=== PATIENT | female | born 1955 | race Caucasian/White ===

== ENCOUNTER 2017-07-29 07:20 | Emergency (ER) | payer BC ==
[2017-07-29 07:38] VITALS: BP 126/79
--- NOTE | 2017-07-29 08:07 | UC ---
Minor Trauma HPI - HPI Summary HPI Summary: Thursday she fell in the bathroom when she was lightheaded due to dehydration from diarrhea. She is better now in terms of the diarrhea. She did not have much pain at the time but now has left shoulder pain, left rib pain. It hurts more to move arm and breath and cough. No hematuria, no vomiting. - History of Current Complaint Chief Complaint: UCUpperExtremity Stated Complaint: RIB PAIN DUE TO FALL,DIARRHEA Time Seen by Provider: 07/29/17 07:54 Hx Obtained From: Patient Onset/Duration: Gradual Onset, Lasting Days, Still Present Onset Of Pain: Post Accident Severity Initially: Mild Severity Currently: Severe Pain Intensity: 10 Mechanism Of Injury: Blunt Trauma, Direct Blow, Fall From A Standing Position Aggravating Factor(s): Deep Breaths, Movement Alleviating Factor(s): Nothing - Allergies/Home Medications Allergies/Adverse Reactions: Allergies Allergy/AdvReac Type Severity Reaction Status Date / Time No Known Allergies Allergy Verified 07/29/17 07:28 Home Medications: Home Medications Cholecalciferol (Vitamin D3) [Vitamin D3] 1,000 unit PO DAILY 07/29/17 [History Confirmed 07/29/17] Fexofenadine (NF) [Enedelia 180 (NF)] 180 mg PO DAILY 07/29/17 [History Confirmed 07/29/17] Hydroxychloroquine TAB* [Plaquenil TAB*] 400 mg PO DAILY 07/29/17 [History Confirmed 07/29/17] Levothyroxine TAB* [Synthroid TAB*] 88 mcg PO DAILY 07/29/17 [History Confirmed 07/29/17] Sertraline* [Zoloft*] 100 mg PO BEDTIME 07/29/17 [History Confirmed 07/29/17] PMH/Surg Hx/FS Hx/Imm Hx Previously Healthy: No - breast cancer. No lung disease. - Surgical History Surgical History: Yes Surgery Procedure, Year, and Place: lumpectomy. hysterectomy - Family History Known Family History: Positive: Other - no related rib - Social History Lives: With Family Alcohol Use: None Substance Use Type: None Smoking Status (MU): Never Smoked Tobacco Review of Systems Musculoskeletal: Arthralgia All Other Systems Reviewed And Are Negative: Yes Physical Exam Triage Information Reviewed: Yes Appearance: Well-Appearing, No Pain Distress - she appears comfortable until she takes deep breaths and then she has severe pain., Well-Nourished Vital Signs: Initial Vital Signs Temp 99 F 07/29/17 07:31 Pulse 83 07/29/17 07:31 Resp 20 07/29/17 07:31 BP 126/79 07/29/17 07:31 Pulse Ox 96 07/29/17 07:31 Vital Signs Reviewed: Yes Eyes: Positive: Conjunctiva Clear ENT: Positive: Normal ENT inspection Neck exam: Normal Neck: Positive: Supple, Nontender, No Lymphadenopathy Respiratory: Positive: Lungs clear, Normal breath sounds, No respiratory distress, No accessory muscle use. Negative: Respiratory distress, Decreased breath sounds, Accessory muscle use, Crackles, Rhonchi, Stridor, Wheezing Abdomen Description: Positive: Nontender, No Organomegaly, Soft. Negative: CVA Tenderness (R), CVA Tenderness (L), Distended, Guarding Musculoskeletal: Positive: Other: - No left shoulder pain or tenderness. Neurological: Positive: Alert, Muscle Tone Normal. Negative: Fatigued Psychological: Positive: Age Appropriate Behavior Skin: Negative: rashes - no obvious bruising or the involved sites. Minor Trauma Course/Dx - Course Course Of Treatment: No signs or symptoms of spleen or kidney laceration. She has no lung disease to make rib fracture more worrisome. No signs of shoulder/ clavile fracture. She agrees to seek PT and MRI if shoulder does not improve quickly. We have found 5 rib fractures and she and have been made aware that this places her at risk for pneumonia and further complications. They will keep up with pain control and f/u pcp often. If there are ever any worsening symptoms, they will go to ED immediately. They will also take care not to fall due to sedating properties of pain meds. Incentive spirometer described in detail. - Differential Dx/Diagnosis Provider Diagnoses: rib injury. shoulder injury Discharge - Discharge Plan Condition: Fair Disposition: HOME Prescriptions: HYDROcodone/ACETAMIN 5-325 MG* [[place] 5-325 TAB*] 2 tab PO Q4H PRN #40 tab MDD 6 PRN Reason: Pain Spirometers and Accessories [Mistassist] 1 each MC SEE INSTRUCTIONS #1 each Patient Education Materials: Rib Fracture (ED) Referrals: Tamara Abel MD [Primary Care Provider] - 1 Day Additional Instructions: Go to your pcp in 1-2 days. Go to ED immediately for any signs of pneumonia such as sob, cough, worsening pain.
--- NOTE | 2017-07-29 08:47 | RAD ---
INDICATION: Left lateral rib pain after a fall COMPARISON: None. TECHNIQUE: 4 views of the left ribs were obtained. FINDINGS: There are minimally displaced fractures in the left 6th-10th lateral ribs. Remaining visualized bones are intact. Incidentally noted is a mild degree of dextroconvex curvature of the lower thoracic spine. The lungs are grossly clear. There is no pneumothorax. IMPRESSION: Minimally displaced fractures involving the lateral left 6th-10th ribs.
== END 2017-07-29 09:15 | disposition home or self-care (01) ==
LOC: UCCORT 07:20
DX: S29.9XXA Unspecified injury of thorax, initial encounter (principal); S49.92XA Unspecified injury of left shoulder and upper arm, initial encounter; W19.XXXA Unspecified fall, initial encounter; Y93.9 Activity, unspecified; Y92.002 Bathroom of unspecified non-institutional (private) residence as the place of occurrence of the external cause
CPT/HCPCS: 99212; G0463

== ENCOUNTER 2018-06-24 07:21 | Emergency (ER) | payer BC ==
--- OUTSIDE RECORDS SUMMARY | 2018-06-24 07:30 | XMS REPORT | Continuity of Care Document ---
:1955 External Reference #:[id number] Author Name Tamara Abel MD Address [address] [place] [address] Care Team Providers Name Role Phone Tamara Abel MD Primary Care Physician Unavailable Payers Type Date Identification Numbers Payment Provider Subscriber Policy Number: [id number] [facility] Ppo Edie Silva Group Number: [id number] [address] [id number] PayID: [id number] [place] [address] Advance Directives Description No Information Available Problems Date Description Provider Status Onset: 02/01/2013 Vitamin D deficiency Tamara Abel MD Active Onset: 09/27/2009 Sjogren's syndrome Tamara Abel MD Active Onset: 10/21/2007 Carcinoma in situ of breast Tamara Abel MD Active Onset: 10/19/2007 Polyclonal hypergammaglobulinemia Tamara Abel MD Active Onset: 07/20/2007 Mixed hyperlipidemia Tamara Abel MD Active Onset: 04/16/2007 Moderate recurrent major depression Tamara Abel MD Active Onset: 04/16/2007 Hypothyroidism Tamara Abel MD Active Onset: 12/16/2016 Microscopic colitis Tamara Abel MD Active Onset: 12/21/2017 Cobalamin deficiency Tamara Abel MD Active Onset: 03/23/2018 Alopecia areata Tamara Abel MD Active Onset: 04/16/2007 Allergy Tamara Abel MD Inactive Inactive: 07/06/2014 Onset: 10/19/2007 Ulcerative colitis Tamara Abel MD Inactive Inactive: 12/16/2016 Onset: 04/16/2007 Headache Tamara Abel MD Resolved Resolved: 07/06/2014 Onset: 04/16/2007 Carpal tunnel syndrome Tamara Abel MD Resolved Resolved: 07/06/2014 Onset: 04/16/2007 Female climacteric state Tamara Abel MD Resolved Resolved: 07/06/2014 Family History Date Family Member(s) Problem(s) Comments Father [place] : (age 75 Years) Father due to [place] Mother Cancer, Breast : (age 81 Years) Mother due to Alzheimer's Disease Social History Type Date Description Comments Sex Unknown Marital Status Lives With Spouse 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 Tobacco Use Start: Unknown Never Smoked Cigarettes Smoking Status Reviewed: 03/23/18 Never Smoked Cigarettes ETOH Use Rarely consumes alcohol Tobacco Use Start: Unknown Patient has never smoked Allergies, Adverse Reactions, Alerts Date Description Reaction Status Severity Comments 06/02/2018 NKDA Active 07/16/2016 Latex Active Medications Medication Date Status Form Strength Qnty SIG Indications Ordering Provider Mastectomy Bra 11/17 Active This is C50.919 medically MD Tamara necessary LEFT Breast 11/17 Active This is C50.919 Colten medically MD Tamara necessary Levothyroxine 02/11 Active Tablets 88mcg 90tab 1 by mouth E03.9 Colten s every day MD Tamara Fexofenadine HCL Active Tablets 180mg 30tab 1 PO qd s MD Tamara Hydroxychloroquine Active Tablets 200mg 2 po daily M35.00 Endo, Sulfate 0000 Abiodun [facility] D3 Active Capsules 1000Unit Once Daily Unknown Escitalopram 04/13 Hx Tablets 20mg 30tab 1 by mouth F33.1 Ruth Abel s every day MD Tamara - 05/11 Escitalopram 03/23 Hx Tablets 10mg 30tab 1 by mouth F33.1 Ruth Abel s every day MD Tamara - 04/13 Sertraline HCL 09/17 Hx Tablets 50mg 270ta 3 by mouth F33.1 Colten bs every day MD Tamara - 03/23 Colestipol HCL 09/16 Hx Tablets 1gm 120ta 1 by mouth K51.90 bs twice a day MD Tamara - - increase 09/17 dose by pill daily until diarrhea has resolved with mdd of 4 pills Nitrofurantoin 07/16 Hx Capsules 100mg 10cap 2 Times A Unknown Monohyd s Day - 09/16 Meloxicam 06/05 Hx Tablets 15mg 30tab 1 tab by [id number] Colten s mouth daily MD Tamara - for pain 09/17 for 1- weeks, then daily as needed for pain Baclofen 06/05 Hx Tablets 10mg 30tab 1 by mouth M54.5 Colten s every at MD Tamara - bedtime for 09/17 1-2 then as needed for muscle spasm Clonidine HCL 02/11 Hx Tablets 0.1mg 30tab 1 po daily N95.1 Colten s MD Tamara - 04/01 Levothyroxine 05/29 Hx Tablets 75mcg 90tab 1 by mouth E03.9 Chilo Abel s every day MD Tamara - 02/11 Levothyroxine 02/01 Hx Tablets 88mcg 90tab 1 by mouth E03.9 Chilo Abel s every day MD Tamara - 05/29 Zostavax 08/24 Hx Solution [id number]/ 1unit 0.65 Rec 0.65ML s milliliters MD Tamara - sc x 1 04/01 Sertraline HCL 01/08 Hx Tablets 100mg 90tab take 1 F33.1 Colten s tablet by MD Tamara - mouth every Restasis Hx Emulsion 0.05% 1 gtt ou Unknown /0000 bid - 09/21 Pantoprazole Hx Tablets 40mg 1 by mouth Fabiano Fragoso Sodium /0000 DR every other arup - day 06/05 Methocarbamol Hx Tablets 500mg take One Surya, /0000 tablet(s) Mayra VILLARREAL - every 8 09/16 hours needed for muscle pain. Pantoprazole 0000 Hx Tablets 40mg 1 by mouth Unknown Sodium /0000 DR every day - 09/17 Famotidine Hx Tablets 20mg one by Unknown /0000 mouth bid - 03/22 Immunizations CPT Code Status Date Vaccine Reaction Lot # [id number] Given 02/22/2018 Afluria Imunization Q2039 Given 03/28/2017 Flu Vaccine NOS Q2037 Given 03/15/2016 Fluvirin Immunization [facility] 09290 Given 03/15/2016 Zoster (Zostavax) [facility] Q2039 Given 04/20/2015 Flu Vaccine NOS 87924 Given 03/08/2014 Afluria Or Fluvirin Flu Vac Intramuscular 50285 Given 02/27/2013 Afluria Or Fluvirin Flu Vac Intramuscular 20526 Given 03/16/2012 Afluria Or Fluvirin Flu Vac VIS DATE 12/08/11 Intramuscular 99545 Given 03/25/2011 Tdap (Adacel) Ages 7 And Above VIS DATE 04/25/08 Only 05242 Given 03/25/2011 Afluria Or Fluvirin Flu Vac VIS DATE 12/31/10 Intramuscular Vital Signs Date Vital Result Comment 06/02/2018 10:49am Weight 251.00 lb Heart Rate 99 /min BP Systolic 128 mmHg BP Diastolic 78 mmHg Respiratory Rate 18 /min Height 68 inches 5'8" O2 % BldC Oximetry 98 % Ra BMI (Body Mass Index) 38.2 kg/m2 05/11/2018 2:45pm Weight 252.00 lb Heart Rate 83 /min BP Systolic 124 mmHg BP Diastolic 78 mmHg Respiratory Rate 18 /min Height 68 inches 5'8" O2 % BldC Oximetry 98 % Ra BMI (Body Mass Index) 38.3 kg/m2 04/13/2018 1:13pm Weight 253.00 lb Heart Rate 92 /min BP Systolic 128 mmHg BP Diastolic 70 mmHg Respiratory Rate 18 /min Height 68 inches 5'8" O2 % BldC Oximetry 98 % Ra BMI (Body Mass Index) 38.5 kg/m2 03/23/2018 1:11pm Weight 250.00 lb Heart Rate 75 /min BP Systolic 116 mmHg BP Diastolic 76 mmHg Respiratory Rate 18 /min Height 68 inches 5'8" BMI (Body Mass Index) 38.0 kg/m2 12/21/2017 10:57am Weight 244.00 lb Heart Rate 88 /min BP Systolic 120 mmHg BP Diastolic 80 mmHg Respiratory Rate 18 /min Height 68 inches 5'8" 09/17/17 BMI (Body Mass Index) 37.1 kg/m2 09/17/2017 11:07am Weight 243.00 lb Heart Rate 76 /min BP Systolic 98 mmHg BP Diastolic 60 mmHg Respiratory Rate 18 /min Height 68 inches 5'8" 09/17/17 BMI (Body Mass Index) 36.9 kg/m2 07/31/2017 3:07pm Weight 245.00 lb Heart Rate 84 /min BP Systolic 110 mmHg BP Diastolic 70 mmHg Respiratory Rate 18 /min Height 68 inches 5'8" 07/22/16 O2 % BldC Oximetry 96 % BMI (Body Mass Index) 37.2 kg/m2 03/19/2017 11:08am Weight 245.00 lb Heart Rate 68 /min BP Systolic 100 mmHg BP Diastolic 58 mmHg Respiratory Rate 18 /min Height 68 inches 5'8" 07/22/16 BMI (Body Mass Index) 37.2 kg/m2 12/16/2016 9:52am Weight 245.00 lb Heart Rate 76 /min BP Systolic 122 mmHg BP Diastolic 80 mmHg Respiratory Rate 18 /min Height 68 inches 5'8" 07/22/16 BMI (Body Mass Index) 37.2 kg/m2 09/16/2016 11:24am Weight 246.00 lb Heart Rate 76 /min BP Systolic 112 mmHg BP Diastolic 70 mmHg Respiratory Rate 18 /min Height 68 inches 5'8" 07/22/16 BMI (Body Mass Index) 37.4 kg/m2 07/22/2016 3:40pm Weight 246.00 lb Heart Rate 76 /min BP Systolic 102 mmHg BP Diastolic 50 mmHg Respiratory Rate 18 /min Height 68 inches 5'8" 07/22/16 BMI (Body Mass Index) 37.4 kg/m2 06/05/2016 10:15am Weight 254.00 lb Heart Rate 68 /min BP Systolic 112 mmHg BP Diastolic 70 mmHg Respiratory Rate 18 /min Height 68 inches 5'8" 08/28/15 BMI (Body Mass Index) 38.6 kg/m2 04/01/2016 2:43pm Weight 254.00 lb Heart Rate 80 /min BP Systolic 130 mmHg BP Diastolic 70 mmHg Respiratory Rate 18 /min Height 68 inches 5'8" 08/28/15 BMI (Body Mass Index) 38.6 kg/m2 02/12/2016 10:04am Weight 250.00 lb Heart Rate 76 /min BP Systolic 140 mmHg BP Diastolic 70 mmHg Respiratory Rate 18 /min Height 68 inches 5'8" 08/28/15 BMI (Body Mass Index) 38.0 kg/m2 02/05/2016 11:16am Body Temperature 98.2 F Weight 250.00 lb Heart Rate 72 /min BP Systolic 128 mmHg BP Diastolic 74 mmHg Respiratory Rate 17 /min Height 68 inches 5'8" 08/28/15 O2 % BldC Oximetry 9495 % Ra BMI (Body Mass Index) 38.0 kg/m2 08/28/2015 11:06am Weight 245.00 lb Heart Rate 76 /min BP Systolic 122 mmHg BP Diastolic 70 mmHg Respiratory Rate 18 /min Height 68 inches 5'8" 08/28/15 BMI (Body Mass Index) 37.2 kg/m2 05/29/2015 10:38am Weight 245.00 lb Heart Rate 76 /min BP Systolic 102 mmHg BP Diastolic 70 mmHg Respiratory Rate 18 /min Height 68 inches 5'8" 12/12/14 BMI (Body Mass Index) 37.2 kg/m2 12/12/2014 3:26pm Weight 243.00 lb Heart Rate 76 /min BP Systolic 112 mmHg BP Diastolic 80 mmHg Respiratory Rate 18 /min Height 68 inches 12/12/14 BMI (Body Mass Index) 36.9 kg/m2 10/17/2014 11:06am Weight 245.00 lb Heart Rate 68 /min BP Systolic 112 mmHg BP Diastolic 70 mmHg Respiratory Rate 18 /min Height 68 inches 5'8" (Done On 08/04/13) BMI (Body Mass Index) 37.2 kg/m2 09/21/2014 1:04pm Weight 243.00 lb Heart Rate 84 /min BP Systolic 102 mmHg BP Diastolic 58 mmHg Respiratory Rate 18 /min Height 68 inches 5'8" (Done On 08/04/13) BMI (Body Mass Index) 36.9 kg/m2 07/06/2014 1:08pm Weight 243.00 lb Heart Rate 80 /min BP Systolic Lying Down 112 mmHg BP Diastolic Lying Down 70 mmHg Respiratory Rate 18 /min Height 68 inches 5'8" (Done On 08/04/13) BMI (Body Mass Index) 36.9 kg/m2 01/19/2014 1:05pm Weight 246.00 lb Heart Rate 68 /min BP Systolic 110 mmHg BP Diastolic 70 mmHg Respiratory Rate 18 /min Height 68 inches 5'8" (Done On 08/04/13) 08/25/2013 4:03pm Weight 252.00 lb Heart Rate 88 /min BP Systolic 140 mmHg BP Diastolic 82 mmHg Respiratory Rate 20 /min Height 68 inches 5'8" (Done On 08/04/13) 08/04/2013 1:11pm Weight 250.00 lb Heart Rate 96 /min BP Systolic 128 mmHg BP Diastolic 80 mmHg Respiratory Rate 20 /min Height 68 inches 5'8" 02/01/2013 1:02pm Weight 262.00 lb Heart Rate 80 /min BP Systolic 134 mmHg BP Diastolic 70 mmHg Respiratory Rate 20 /min Height 68 inches 5'8" (Done On 08/24/12) 08/24/2012 1:00pm Weight 259.00 lb Heart Rate 102 /min BP Systolic 110 mmHg BP Diastolic 80 mmHg Respiratory Rate 18 /min Height 68 inches 5'8" 06/16/2012 1:02pm Weight 266.00 lb Up 7# Heart Rate 84 /min BP Systolic 114 mmHg R/LG BP Diastolic 82 mmHg R/LG Respiratory Rate 18 /min Height 68.5 inches 5'8.50" (Done On 09/25/11) 03/16/2012 1:03pm Weight 259.00 lb Heart Rate 100 /min BP Systolic 124 mmHg BP Diastolic 80 mmHg Respiratory Rate 20 /min Height 68.5 inches 5'8.50" (Done On 09/25/11) 10/02/2011 1:06pm Weight 260.00 lb Heart Rate 100 /min BP Systolic 130 mmHg BP Diastolic 80 mmHg Respiratory Rate 20 /min Height 68.5 inches 5'8.50" (Done On 09/25/11) 09/25/2011 10:55am Weight 260.00 lb Heart Rate 88 /min BP Systolic 126 mmHg BP Diastolic 76 mmHg Respiratory Rate 20 /min Height 68.5 inches 5'8.50" 03/25/2011 10:06am Weight 258.00 lb Heart Rate 68 /min BP Systolic 110 mmHg BP Diastolic 72 mmHg Respiratory Rate 18 /min Height 68.25 inches 5'8.25" (Done On 07/16/10) 10/15/2010 10:55am Weight 252.00 lb Heart Rate 68 /min BP Systolic 112 mmHg BP Diastolic 76 mmHg Respiratory Rate 18 /min Height 68.25 inches 5'8.25" (Done On 07/16/10) 07/16/2010 11:29am Weight 248.00 lb Heart Rate 88 /min BP Systolic 110 mmHg BP Diastolic 76 mmHg Respiratory Rate 18 /min Height 68.25 inches 5'8.25" 03/28/2010 11:05am Weight 251.00 lb Heart Rate 70 /min BP Systolic 124 mmHg BP Diastolic 70 mmHg 01/08/2010 11:01am Weight 248.00 lb Heart Rate 80 /min BP Systolic 110 mmHg BP Diastolic 62 mmHg Respiratory Rate 18 /min 11/09/2009 9:12am Weight 251.00 lb Heart Rate 84 /min BP Systolic 110 mmHg BP Diastolic 70 mmHg Respiratory Rate 18 /min 09/27/2009 9:29am Weight 246.00 lb Heart Rate 88 /min BP Systolic 106 mmHg BP Diastolic 70 mmHg Respiratory Rate 18 /min 07/03/2009 9:51am Weight 245.00 lb Heart Rate 80 /min BP Systolic 116 mmHg BP Diastolic 76 mmHg Respiratory Rate 18 /min Height 68.5 inches 5'8.50" 04/02/2009 10:06am Weight 236.00 lb Heart Rate 96 /min BP Systolic 112 mmHg BP Diastolic 76 mmHg Respiratory Rate 18 /min 12/29/2008 9:24am Weight 237.00 lb Heart Rate 92 /min BP Systolic 120 mmHg BP Diastolic 66 mmHg Respiratory Rate 18 /min 12/11/2008 11:06am Weight 237.00 lb Heart Rate 96 /min BP Systolic 128 mmHg BP Diastolic 72 mmHg Respiratory Rate 20 /min 11/09/2008 10:05am Weight 236.00 lb Heart Rate 84 /min BP Systolic 108 mmHg BP Diastolic 64 mmHg Respiratory Rate 18 /min 10/24/2008 9:12am Weight 234.00 lb Heart Rate 104 /min BP Systolic 112 mmHg BP Diastolic 78 mmHg Respiratory Rate 20 /min Height 68.5 inches 5'8.50" 07/24/2008 10:13am Weight 240.00 lb Heart Rate 88 /min BP Systolic 120 mmHg BP Diastolic 80 mmHg Respiratory Rate 18 /min Height 68.5 inches 5'8.50" 01/21/2008 8:53am Weight 246.00 lb Heart Rate 80 /min BP Systolic 110 mmHg BP Diastolic 70 mmHg Height 68.5 inches 5'8.50" 10/19/2007 11:16am Weight 238.00 lb Heart Rate 104 /min BP Systolic 112 mmHg BP Diastolic 70 mmHg Respiratory Rate 20 /min Height 68.5 inches 5'8.50" 07/20/2007 11:17am Weight 240.00 lb Heart Rate 70 /min BP Systolic 122 mmHg BP Diastolic 84 mmHg Respiratory Rate 22 /min Height 68.5 inches 5'8.50" 04/16/2007 10:40am Weight 242.00 lb Heart Rate 76 /min BP Systolic 120 mmHg BP Diastolic 84 mmHg Respiratory Rate 16 /min Height 68.5 inches 5'8.50" Results Test Date Facility Test Result H/L Range Note Laboratory test finding 03/12/2018 [facility] TSH 3.48 uIU/mL 0.35-4.94 1 Vitamin B12 1252 pg/mL High 180-914 Vitamin D 25 Hydroxy 22 ng/mL Low 30-100 2 CBC with Auto Diff-fcmg 03/12/2018 [facility] WBC 3.8 K/uL Low 4.1-11.0 RBC 5.01 M/uL 4.00-5.40 Hemoglobin 15.1 gm/dL 12.0-16.0 Hematocrit 45.0 % 36.0-47.0 MCV 89.8 fL 80.0-97.0 MCH 30.2 pg 27.0-32.0 MCHC 33.6 g/dL 32.0-36.0 RDW 13.2 % 11.5-14.5 PLT Count 265 K/ul 140-400 MPV 8.2 FL 7.1-10.7 Neutrophil 55.4 % 35.0-75.0 Lymphocyte 28.4 % 16.0-52.0 Monocyte 11.3 % High 2.0-10.0 Eosinophil 3.8 % 0.0-5.0 Basophil 1.1 % 0.0-4.0 Abs Neutrophils 2.1 K/uL 2.1-8.0 Abs Lymphocytes 1.1 K/uL 0.8-5.5 Abs Monocytes 0.4 K/uL 0.1-1.0 Abs Eosinophils 0.1 K/uL 0.0-0.5 Abs Basophils 0.0 K/uL 0.0-0.3 Comprehensive Met Panel-FCMG 03/12/2018 [facility] Sodium 140 mmol/L 135- 146 3 Potassium 3.8 mmol/L 3.5-5.2 Chloride# 102 mmol/L 97-110 4 Carbon Dioxide 31 mmol/L 24-34 Glucose 86 mg/dL 70-105 BUN 13 mg/dL 6-26 Creatinine 0.8 mg/dL 0.5-1.4 Calcium 9.1 mg/dL 8.5-10.2 Total Protein 7.8 g/dL 6.0-8.0 Albumin 4.3 g/dL 3.6-4.9 Globulin 3.5 g/dL 2.0-3.5 A/G Ratio 1.2 Ratio 1.0-2.2 Total Bilirubin 0.6 mg/dL 0.1-1.3 Alkaline Phosphatase 58 U/L 24-140 Alt 11 U/L 3-42 Ast 17 U/L 8-42 Shanel Egfr >60 >60 5 Non Shanel Egfr >60 >60 6 Anion Gap 7 mmol/L 5-15 7 Laboratory test 09/09/2017 [facility] Vitamin D 25 19 ng/mL Low 30-100 8, 9 finding Hydroxy TSH 2.25 uIU/mL 0.35-4.94 Vitamin B12 283 pg/mL 180-914 Immunofix 09/09/2017 [facility] Serum NO MONOCLONAL AL 10 Serum-RL @ <SEE NOTE> Laboratory test 09/09/2017 [facility] Vitamin B12 344 pg/mL (193-9 11 finding 86) Angela Urine Random 09/09/2017 [facility] Protein,Urine <6 mg/dL 12 [phone] Immunofix Urine @ NOT APPLICABLE Laboratory test finding 03/12/2017 [facility] Vit D25oh 28 ng/mL Low 31-100 13 Lipid Treatment 03/12/2017 [facility] Cholesterol 184 mg/dL 50-199 Triglycerides 98 mg/dL 30-200 HDL 43 mg/dL 35-85 14 Chol/ HDL Ratio 4.3 ratio 3.7-5.6 VLDL 20 mg/dL 2-29 LDL (Calc) 122 mg/dL High 20-99 15 Alt 8 U/L 3-42 Ast 15 U/L 8-42 Laboratory test finding 03/12/2017 [facility] TSH 0.92 uIU/mL 0.35-4.94 CBC With Auto Diff 03/12/2017 [facility] WBC 4.1 K/uL 4.1-11.0 RBC 4.86 M/uL 4.00-5.40 Hemoglobin 14.8 gm/dL 12.0-16.0 Hematocrit 43.6 % 36.0-47.0 MCV 89.8 fL 80.0-97.0 MCH 30.4 pg 27.0-32.0 MCHC 33.8 g/dL 32.0-36.0 RDW 13.9 % 11.5-14.5 PLT Count 276 K/ul 140-400 MPV 8.5 FL 7.1-10.7 Neutrophil 60.4 % 35.0-75.0 Lymphocyte 25.9 % 16.0-52.0 Monocyte 9.5 % 2.0-10.0 Eosinophil 3.0 % 0.0-5.0 Basophil 1.2 % 0.0-4.0 Abs Neutrophils 2.5 K/uL 2.1-8.0 Abs Lymphocytes 1.0 K/uL 0.8-5.5 Abs Monocytes 0.4 K/uL 0.1-1.0 Abs Eosinophils 0.1 K/uL 0.0-0.5 Abs Basophils 0.0 K/uL 0.0-0.3 Laboratory test 12/10/2016 [facility] Hepatitis C NONREACTIVE Nonreactive 16 finding Virus Antibody Laboratory test 09/08/2016 [facility] TSH 3.10 uIU/mL 0.35-4.94 17 finding Urine Culture 07/16/2016 [facility] Urine Culture URETHRAL WENDY 18 (315)- - Quantity 10,000 - 50,000 <SEE NOTE> N 19 pH Ur Strip.auto 07/16/2016 N2N/CCD Import pH Ur Strip.auto 5.5 Low 6.5- 7.5 Urobilinogen Ur 07/16/2016 N2N/CCD Import Urobilinogen Ur 0.2 0.2-1.0 Strip-aCnc Strip-aCnc Urine hemoglobin 07/16/2016 N2N/CCD Import Urine hemoglobin Negative Negative detection by detection by automated test automated test strip strip Urinalysis With 07/16/2016 [facility] Urine Color YELLOW Yellow Microscopic (315)- - Urine Clarity CLEAR Clear Urine Glucose - Dipstick NEGATIVE mg/dL Negative Urine Bilirubin - Dipstick NEGATIVE Negative Urine Ketone NEGATIVE mg/dL Negative Urine Specific [place] 1.015 N 1.010-1.030 Urine Blood NEGATIVE Negative Urine PH 5.5 Low 6.5-7.5 Urine Protein - Dipstick NEGATIVE mg/dL Negative Urine Urobilinogen - Dipstick 0.2 E.U./dL N 0.2-1.0 Urine Nitrite - Dipstick NEGATIVE Negative Urine Leuk Esterase MODERATE Abnormal Negative Urine RBC NONE SEEN rbc/hpf 0-2 Urine WBC 5-10 wbc/hpf 0-7 Urine Epithelial Cells FEW /lpf None Seen Urine Bacteria FEW None Seen Source: URINE, CLEAN CAT <SEE NOTE> 20 Bacteria 07/16/2016 N2N/CCD Import Bacteria Few None Seen [presence] in [presence] in urine sediment by urine sediment by light maria dolores light microscopy Bilirub Ur Ql 07/16/2016 N2N/CCD Import Bilirub Ur Ql Negative Negative Strip.auto Strip.auto Color Ur 07/16/2016 N2N/CCD Import Color Ur Yellow Yellow Epithelial cells 07/16/2016 N2N/CCD Import Epithelial cells Few None Seen [presence] in [presence] in urine sediment by urine sediment by l light microscopy Erythrocytes 07/16/2016 N2N/CCD Import Erythrocytes None Seen 0-2 [#/area] in urine [#/area] in urine sediment by sediment by microsc microscopy high power field Ketones Ur 07/16/2016 N2N/CCD Import Ketones Ur Negative Negative Strip.auto-mCnc Strip.auto-mCnc Leukocyte 07/16/2016 N2N/CCD Import Leukocyte Moderate High Negative esterase Ur Ql esterase Ur Ql Strip.auto Strip.auto Urine glucose 07/16/2016 N2N/CCD Import Urine glucose Negative Negative measurement by measurement by automated test automated test strip strip (mass/volume) Urine appearance 07/16/2016 N2N/CCD Import Urine appearance Clear Clear determination determination Specific gravity 07/16/2016 N2N/CCD Import Specific gravity 1.015 1.010- 1.030 of urine by of urine by automated test automated test strip strip Prot Ur 07/16/2016 N2N/CCD Import Prot Ur Negative Negative Strip.auto-mCnc Strip.auto-mCnc Nitrite Ur Ql 07/16/2016 N2N/CCD Import Nitrite Ur Ql Negative Negative Strip.auto Strip.auto CBC With Auto 06/05/2016 [facility] WBC 4.4 K/uL 4.1-11.0 Diff RBC 5.06 M/uL 4.00-5.40 Hemoglobin 14.8 gm/dL 12.0-16.0 Hematocrit 45.4 % 36.0-47.0 MCV 89.7 fL 80.0-97.0 MCH 29.3 pg 27.0-32.0 MCHC 32.7 g/dL 32.0-36.0 RDW 12.8 % 11.5-14.5 PLT Count 301 K/ul 140-400 Neutrophil 57.1 % 35.0-75.0 Lymphocyte 31.9 % 16.0-52.0 Monocyte 10.1 % High 2.0-10.0 Eosinophil 0.3 % 0.0-5.0 Basophil 0.6 % 0.0-4.0 Abs Neutrophils 2.5 K/uL 2.1-8.0 Abs Lymphocytes 1.4 K/uL 0.8-5.5 Abs Monocytes 0.4 K/uL 0.1-1.0 Abs Eosinophils 0.0 K/uL 0.0-0.5 Abs Basophils 0.0 K/uL 0.0-0.3 Comprehensive Metabolic (CMP) 06/05/2016 [facility] Sodium 137 mmol/L 134- 142 Potassium 4.4 mmol/L 3.5-5.2 Chloride 103 mmol/L 97-109 Carbon Dioxide 30 mmol/L 24-34 Glucose 85 mg/dL 70-105 BUN 12 mg/dL 6-26 Creatinine 0.8 mg/dL 0.5-1.4 Calcium 9.3 mg/dL 8.5-10.2 Total Protein 7.7 g/dL 6.0-8.0 Albumin 4.4 g/dL 3.6-4.9 Globulin 3.3 g/dL 2.0-3.5 A/G Ratio 1.3 Ratio 1.0-2.2 Total Bilirubin 0.6 mg/dL 0.1-1.3 Alkaline Phosphatase 68 U/L 24-140 Alt 8 U/L 3-42 Ast 14 U/L 8-42 Anion Gap 8 mmol/L 6-14 Shanel Egfr >60 >60 21 Non Shanel Egfr >60 >60 22 Laboratory test finding 06/05/2016 [facility] Esr 5 mm/hr 0-20 CRP (C-Reactive) 0.19 mg/dL 0.00-0.75 Unloinc 04/04/2016 N2N/CCD Import Unloinc 83 Low 93-98 Unloinc 21 21-100 Unloinc 424 [facility]inc 7.9 Heart rate by 04/04/2016 N2N/CCD Import Heart rate by 69 oximetry oximetry Continuous Oximetry 04/04/2016 [facility] Low Oximetry 83 % Low 93-98 23 (315)- - Fio2 21 N 21-100 Heart Rate 69 BPM N Duration Of Study 424 MINUTES N Total Time Below 88% 7.9 MINUTES N Unloinc 04/03/2016 N2N/CCD Import Unloinc Resting Oxygen saturation 04/03/2016 N2N/CCD Import Oxygen saturation 93 93-98 in arterial blood in arterial blood by pulse oxime by pulse oximetry Continuous Oximetry 04/03/2016 [facility] Oximetry 93 % N 93-98 (315)- - Fio2 21 N 21-100 Heart Rate 99 BPM N Patient Status RESTING N Laboratory test finding 03/25/2016 [facility] TSH 2.49 uIU/mL 0.35-4.94 24 Laboratory test finding 02/05/2016 [facility] TSH 5.54 uIU/mL High 0.35- 4.94 25 Comprehensive Metabolic (CMP) 02/05/2016 [facility] Sodium 138 mmol/L 134- 142 Potassium 3.8 mmol/L 3.5-5.2 Chloride 101 mmol/L 97-109 Carbon Dioxide 30 mmol/L 24-34 Glucose 92 mg/dL 70-105 BUN 10 mg/dL 6-26 Creatinine 0.8 mg/dL 0.5-1.4 Calcium 9.6 mg/dL 8.5-10.2 Total Protein 7.9 g/dL 6.0-8.0 Albumin 4.4 g/dL 3.6-4.9 Globulin 3.5 g/dL 2.0-3.5 A/G Ratio 1.3 Ratio 1.0-2.2 Total Bilirubin 0.5 mg/dL 0.1-1.3 Alkaline Phosphatase 46 U/L 24-140 Alt 9 U/L 3-42 Ast 15 U/L 8-42 Anion Gap 11 mmol/L 6-14 Shanel Egfr >60 >60 26 Non Shanel Egfr >60 >60 27 CBC With Auto Diff 02/05/2016 [facility] WBC 5.3 K/uL 4.1-11.0 RBC 4.90 M/uL 4.00-5.40 Hemoglobin 14.8 gm/dL 12.0-16.0 Hematocrit 44.3 % 36.0-47.0 MCV 90.3 fL 80.0-97.0 MCH 30.2 pg 27.0-32.0 MCHC 33.4 g/dL 32.0-36.0 RDW 13.1 % 11.5-14.5 PLT Count 303 K/ul 140-400 Neutrophil 60.9 % 35.0-75.0 Lymphocyte 27.7 % 16.0-52.0 Monocyte 9.6 % 2.0-10.0 Eosinophil 1.1 % 0.0-5.0 Basophil 0.7 % 0.0-4.0 Abs Neutrophils 3.2 K/uL 2.1-8.0 Abs Lymphocytes 1.5 K/uL 0.8-5.5 Abs Monocytes 0.5 K/uL 0.1-1.0 Abs Eosinophils 0.1 K/uL 0.0-0.5 Abs Basophils 0.0 K/uL 0.0-0.3 Urine Timed Stevie 08/23/2015 [facility] Hours Of Collection 24 h [phone] Urine Volume 2050 mL High (800-1800) Urine Immunofixation 08/23/2015 [facility] Urine NOT APPLICABLE [phone] @ Protein,Urine <6 mg/dL 28 Protein/24HR <123 mg/(24.h) (0-150) Urine TP (24 HR) <6 mg/(24.h) Albumin Urine NOT APPLICABLE % Alph1 1 Urine NOT APPLICABLE % Alpha 2 Urine NOT APPLICABLE % Beta Urine NOT APPLICABLE % Gamma Urine NOT APPLICABLE % Interpretation: NOT APPLICABLE Immun[facility] Serum 08/21/2015 [facility] NO MONOCLONAL 29 [phone] Serum @ AL <SEE NOTE> Laboratory test 08/21/2015 [facility] Vit D,25 31 ng/mL 31-10 30 finding Hydroxy 0 TSH 3.71 uIU/mL 0.35-4.94 Laboratory test 07/10/2015 [facility] TSH 2.02 uIU/mL 0.35-4.94 31 finding Laboratory test 05/22/2015 [facility] Thyroid Stim 0.32 uIU/mL Low 0.36-3.74 32 finding (315)- - Hormone BMP (Basic) 05/22/2015 [facility] Glucose 84 mg/dL 74- 106 (315)- - BUN 10 mg/dL 7-18 Creatinine 0.8 mg/dL 0.6-1.3 Glom Filtration Rate, Estimate >60 mL/min >60 If >60 mL/min >60 33 BUN/Creat 12.5 ratio Sodium 141 mmol/L 136-145 Potassium 3.9 mmol/L 3.5-5.1 Chloride 106 mmol/L 98-107 Carbon Dioxide 27 mmol/L 21-32 Anion Gap 8 mEq/L 8-16 Calcium 8.6 mg/dL 8.5-10.1 CBC With Auto 05/22/2015 [facility] White Blood 3.8 K/uL 3.1-10.7 Diff (315)- - Count Red Blood Count 4.97 M/uL 3.90-5.40 Hemoglobin 14.8 gm/dL 11.6-15.8 Hematocrit 44.1 % 36.0-46.1 Mean Cell Volume 88.7 fl 80.9-99.0 Mean Corpuscular HGB 29.8 pg 25.9-32.7 Mean Corpuscular HGB Conc 33.6 g/dL 30.8-34.3 Platelet Count 286 K/uL 155-360 Red Cell Distri Width SD 41.5 fl 3-47 Red Cell Distri Width %CV 13.2 % 11.7-14.4 Mean Platelet Volume 9.7 fL 8.9-12.4 Neut% 59.2 % 40.4-72.8 Lymph % 30.1 % 17.0-46.1 [place] % 10.4 % 4.3-13.2 Eo% 0.0 % 0.0-6.6 Bas% 0.3 % 0.0-1.1 Neut# 2.22 K/uL 1.0-7.0 Lymph # 1.13 K/uL Low 1.8-7.0 [place] # 0.39 K/uL 0.3-0.9 Eos # 0.00 K/uL 0.0-0.5 Baso # 0.01 K/uL 0.0-0.1 Laboratory test 05/22/2015 [facility] Vitamin 23.5 Low 30.0-100.0 34 finding (315)- - D,25-Hydroxy ng/mL Liver Function 05/22/2015 [facility] Total Protein 8.5 g/ dL High 6.4-8.2 Tests (315)- - Albumin 3.9 g/dL 3.4-5.0 Globulin 4.6 g/dL High 1.9-4.3 Alb/Glob 0.8 ratio Bilirubin,Total 0.5 mg/dL 0.2-1.0 Bilirubin,Direct 0.1 mg/dL 0.0-0.2 Bilirubin,Indirect 0.4 mg/dL 0.0-0.9 Sgot/Ast 15 U/L 15-37 SGPT/Alt 16 U/L 12-78 Alkaline Phosphatase 63 U/L 45-117 LDL Cholesterol 05/22/2015 [facility] Cholesterol 189 mg/ dL <200 35 Profile (315)- - Triglycerides 149 mg/dL <150 36 HDL Cholesterol 39 mg/dL Low >40 37 LDL-Cholesterol 120 mg/dL < 100 38 Laboratory test finding 12/07/2014 [facility] TSH 0.56 uIU/mL 0.35-4.94 39 Serum Prot Elect -RL 12/07/2014 [facility] Total Protein 8.1 g/dL (6.4-8.2 ) Total Protein Epp 8.1 g/dL (6.4-8.2) Albumin Calc 4.6 g/dL (3.9-5.1) Alpha 1 Calc 0.2 g/dL (0.1-0.3) Alpha 2 Calc 0.6 g/dL (0.4-1.0) Beta Calc 0.9 g/dL (0.5-1.1) Gamma Calc 1.8 g/dL High (0.4-1.2) Monoclonal Calc NO MONOCLONAL ID <SEE NOTE> g/dL ([place]) 40 Albumin Percent 56.9 % Low (58.8-69.6) Alpha 1 Percent 2.2 % (1.6-3.0) Alpha 2 Percent 7.9 % (7.2-13.2) Beta Percent 10.8 % (8.0-14.7) Gamma Percent 22.2 % High (7.3-16.4) Interpretation: SEE NOTE: 41 Basic (BMP) 09/14/2014 [facility] Sodium 139 mmol/L 134-142 42 Potassium 4.0 mmol/L 3.5-5.2 Chloride 105 mmol/L 97-109 Carbon Dioxide 25 mmol/L 24-34 Glucose 87 mg/dL 70-105 BUN 12 mg/dL 6-26 Creatinine 0.8 mg/dL 0.5-1.4 Calcium 9.2 mg/dL 8.5-10.2 Anion Gap 13 mmol/L 6-14 Non Shanel Egfr >60 >60 43 Shanel Egfr >60 >60 44 CBC With Auto Diff 09/14/2014 [facility] WBC 4.4 K/uL 4.1-11.0 RBC 5.08 M/uL 4.00-5.40 Hemoglobin 15.5 gm/dL 12.0-16.0 Hematocrit 45.6 % 36.0-47.0 MCV 89.7 fL 80.0-97.0 MCH 30.4 pg 27.0-32.0 MCHC 33.9 g/dL 32.0-36.0 RDW 13.0 % 11.5-14.5 PLT Count 285 K/ul 140-400 Neutrophil 56.6 % 35.0-75.0 Lymphocyte 32.3 % 16.0-52.0 Monocyte 8.2 % 2.0-10.0 Eosinophil 1.9 % 0.0-5.0 Basophil 1.0 % 0.0-4.0 Abs Neutrophils 2.5 K/uL 2.1-8.0 Abs Lymphocytes 1.4 K/uL 0.8-5.5 Abmon 0.4 K/uL 0.1-1.0 Abs Eosinophils 0.1 K/uL 0.0-0.5 Abs Basophils 0.0 K/uL 0.0-0.3 Laboratory test finding 09/14/2014 [facility] TSH 1.52 uIU/mL 0.34-5.60 Vit D,25 Hydroxy 52 ng/mL 31-100 Laboratory test 06/29/2014 [facility] Thyroid Stim 1.79 uIU/mL 0.36-3.74 finding (315)- - Hormone Laboratory test 01/12/2014 N2N/CCD Import % Baso. 0.9 % 0.0-2.0 finding % Eos. 1.2 % 0.0-4.0 % Lymph 35 % 20-44 % [place] 9.8 % 2.0-10.0 % José 54 % 50-70 A/G Ratio 1.3 ratio Low 1.6-2.2 Absolute Baso. 0.0 K/ul 0.0-0.3 Absolute Eos. 0.1 K/ul 0.0-0.5 Absolute Lymph. 1.7 K/ul 0.8-4.8 Absolute [place]. 0.5 K/ul 0.1-1.0 Absolute José. 2.59 K/ul 2.05-7.63 Albumin 4.5 g/dL 3.5-5.0 Alk. Phos. 56.0 U/L 30.0-126.0 Alt 12.0 U/L 9.0-52.0 Anion Gap 9.0 mmol/L Low 10.0-20.0 Ast 19.0 U/L 14.0-36.0 BUN 12.0 mg/dL 7.0-18.0 BUN/Creat Ratio 15.0 ratio 12.0-20.0 Calcium 9.3 mg/dL 8.7-10.5 Chloride 107.0 mmol/L 98.0-107.0 Co2 24.0 mmol/L 22.0-30.0 Creatinine-Serum 0.8 mg/dL 0.7-1.2 Globulin 3.4 g/dL 2.7-4.3 Glucose 92.0 mg/dL 75.0-110.0 HCT 45.5 % 37.0-51.0 HGB 15.4 Gm/dl 12.0-16.0 MCH 30.0 pg 26.0-32.0 MCHC 33.9 g/dL 31.0-36.0 MCV 88.5 Fl 80.0-97.0 MPV 6.3 fL 6.0-10.0 PLT 298 K/ul 140-440 Potasium 4.1 mmol/L 3.6-5.0 RBC 5.1 M/ul 4.2-6.3 RDW 11.8 % 11.5-14.5 Sodium 140.0 mmil/L 137.0-145.0 TSH 1.01 uIU/ml 0.50-6.00 Total Bilirubin 0.4 mg/dL 0.2-1.3 Total Protein 7.9 g/dL 6.3-8.2 WBC 4.8 K/ul 4.1-10.9 eGFR 83.8 mi/minper1.73 45 Lipid Panel 01/12/2014 N2N/CCD Import Chol/HDL Ratio 5.8 ratio Cholesterol 216.0 mg/dL High 50.0-199.0 HDL 37.0 mg/dL 29.0-86.0 LDL, Calculated 135.0 mg/dL High 20.0-129.0 Triglycerides 220.0 mg/dL 30.0-249.0 vLDL 44.0 ng/dL Protein Electro.,S 01/12/2014 N2N/CCD Import A/G Ratio 1.2 0.7-2.0 Albumin 4.2 g/dL 3.2-5.6 Tdgwo-3-Klnyqwls 0.2 g/dL 0.1-0.4 Qentm-5-Aqzwvcsu 0.5 g/dL 0.4-1.2 Beta Globulin 1.0 g/dL 0.6-1.3 Gamma Globulin 1.8 g/dL High 0.5-1.6 Globulin, Total 3.5 g/dL 2.0-4.5 M-Arsh Not Observed Not Observed g/ P E Interpretation, Serum See Note 46 Please Note: See Note 47 Protein,Total,Serum 7.7 g/dL 6.0-8.5 Protein Electrophoresis,[place]-U 01/12/2014 N2N/CCD Import Albumin,U 44.2 % . Liskv-7-Kxvmapzl 2.7 % . Uqvcf-7-Cvcbyrdq 14.3 % . Beta Globulin,U 29.5 % . Gamma Globulin,U 9.2 % . M-Arhs,% Not Observed Not Observed % Please Note: See Note 48 Protein,Total,Urine 16.1 mg/dL High 0.0-15.0 Laboratory test 12/06/2013 N2N/CCD Import Polyp Colon See Note 49 finding And/Or Rectum Laboratory test 07/28/2013 N2N/CCD Import % Baso. 1.1 % 0.0-2.0 finding % Eos. 0.7 % 0.0-4.0 % Lymph 30 % 20-44 % [place] 10.5 % High 2.0-10.0 % José 58 % 50-70 A/G Ratio 1.2 ratio Low 1.6-2.2 Absolute Baso. 0.0 K/ul 0.0-0.3 Absolute Eos. 0.0 K/ul 0.0-0.5 Absolute Lymph. 1.3 K/ul 0.8-4.8 Absolute [place]. 0.5 K/ul 0.1-1.0 Absolute José. 2.57 K/ul 2.05-7.63 Albumin 4.2 g/dL 3.5-5.0 Alk. Phos. 55.0 U/L 30.0-126.0 Alt 12.0 U/L 9.0-52.0 Anion Gap 9.0 mmol/L Low 10.0-20.0 Ast 19.0 U/L 14.0-36.0 BUN 13.0 mg/dL 7.0-18.0 BUN/Creat Ratio 13.0 ratio 12.0-20.0 Calcium 9.5 mg/dL 8.7-10.5 Chloride 104.0 mmol/L 98.0-107.0 Co2 26.0 mmol/L 22.0-30.0 Creatinine-Serum 1.0 mg/dL 0.7-1.2 Globulin 3.6 g/dL 2.7-4.3 Glucose 92.0 mg/dL 75.0-110.0 HCT 45.3 % 37.0-51.0 HGB 15.2 Gm/dl 12.0-16.0 MCH 30.6 pg 26.0-32.0 MCHC 33.6 g/dL 31.0-36.0 MCV 91.0 Fl 80.0-97.0 MPV 7.0 fL 6.0-10.0 PLT 281 K/ul 140-440 Potasium 3.7 mmol/L 3.6-5.0 RBC 5.0 M/ul 4.2-6.3 RDW 12.0 % 11.5-14.5 Sodium 139.0 mmil/L 137.0-145.0 TSH 2.43 uIU/ml 0.50-6.00 Total Bilirubin 0.3 mg/dL 0.2-1.3 Total Protein 7.8 g/dL 6.3-8.2 Vitamin D 38.9 ng/mL 30.0-100.0 WBC 4.4 K/ul 4.1-10.9 eGFR 64.9 mi/minper1.73 50 Lipid Panel 07/28/2013 [facility] Import Chol/HDL Ratio 4.5 ratio Cholesterol 191.0 mg/dL 50.0-199.0 HDL 42.0 mg/dL 29.0-86.0 LDL, Calculated 121.2 mg/dL 20.0-129.0 Triglycerides 139.0 mg/dL 30.0-249.0 vLDL 27.8 ng/dL Laboratory test 03/22/2013 [facility] Import TSH 2.22 uIU/ml 0.50-6.00 finding Laboratory test 01/25/2013 [facility] Import Thyroid Stim 4.91 uIU/mL High 0.49-4.67 finding Hormone Vitamin D,25-Hydroxy 25.9 ng/mL Low 30.0-100.0 51 Laboratory test finding 08/17/2012 N2N/CCD Import Alb/Glob 1.0 ratio Albumin 4.2 g/dL 3.5-5.0 Alkaline Phosphatase 62 U/L 50-136 Anion Gap 9 mEq/L 8-16 BUN 10 mg/dL 5-23 BUN/Creat 11.1 ratio Bas% 0.4 % 0.0-1.1 Baso # 0.02 K/uL 0.0-0.1 Bilirubin,Total 0.5 mg/dL 0.2-1.2 Calcium 9.0 mg/dL 8.5-10.1 Carbon Dioxide 28 mEq/L 18-29 Chloride 107 mmol/L 98-107 Creatinine 0.9 mg/dL 0.5-1.4 Eo% 0.8 % 0.0-6.6 Eos # 0.04 K/uL 0.0-0.5 Globulin 4.4 g/dL High 1.9-4.3 Glom Filtration Rate, Estimate >60 mL/min >60 Glucose 97 mg/dL 76-115 Hematocrit 44.1 % 36.0-46.1 Hemoglobin 15.2 gm/dL 11.6-15.8 If >60 mL/min >60 52 Lymph # 1.34 K/uL 0.8-3.4 Lymph % 27.1 % 17.0-46.1 Mean Cell Volume 86.8 fl 80.9-99.0 Mean Corpuscular HGB 29.9 pg 25.9-32.7 Mean Corpuscular HGB Conc 34.5 g/dL High 30.8-34.3 Mean Platelet Volume 9.6 fL 8.9-12.4 [place] # 0.56 K/uL 0.3-0.9 [place] % 11.3 % 4.3-13.2 Neut# 2.98 K/uL 1.0-7.0 Neut% 60.4 % 40.4-72.8 Platelet Count 333 K/uL 155-360 Potassium 3.9 mmol/L 3.5-5.1 Red Blood Count 5.08 M/uL 3.90-5.40 Red Cell Distri Width %CV 13.3 % 11.7-14.4 Red Cell Distri Width SD 41.3 fl 3-47 SGPT/Alt 16 U/L Low 30-65 Sgot/Ast 14 U/L Low 16-40 Sodium 140 mmol/L 136-145 Thyroid Stim Hormone 3.88 uIU/mL 0.49-4.67 Total Protein 8.6 g/dL High 6.3-8.0 53 Vitamin D,25-Hydroxy 26.7 ng/mL Low 30.0-100.0 54 White Blood Count 4.9 K/uL 3.1-10.7 LDL Cholesterol Profile 08/17/2012 N2N/CCD Import Cholesterol 200 mg/dL 120-200 HDL Cholesterol 42 mg/dL 29-83 LDL-Cholesterol 131 mg/dL 62-185 Triglycerides 137 mg/dL 16-231 Laboratory test finding 03/09/2012 N2N/CCD Import Alb/Glob 0.9 ratio Albumin 3.9 g/dL 3.5-5.0 Alkaline Phosphatase 50 U/L 50-136 Anion Gap 11 mEq/L 8-16 BUN 10 mg/dL 5-23 BUN/Creat 11.1 ratio Bas% 0.6 % 0.0-1.1 Baso # 0.03 K/uL 0.0-0.1 Bilirubin,Total 0.6 mg/dL 0.2-1.2 C-Reactive Protein,Quant 5.4 mg/L High 0.0-4.9 Calcium 8.9 mg/dL 8.5-10.1 Carbon Dioxide 27 mEq/L 18-29 Chloride 105 mmol/L 98-107 Creatinine 0.9 mg/dL 0.5-1.4 Eo% 0.6 % 0.0-6.6 Eos # 0.03 K/uL 0.0-0.5 Globulin 4.4 g/dL High 1.9-4.3 Glom Filtration Rate, Estimate >60 mL/min >60 Glucose 93 mg/dL 76-115 Hematocrit 43.6 % 36.0-46.1 Hemoglobin 14.7 gm/dL 11.6-15.8 If >60 mL/min >60 55 Lymph # 1.16 K/uL 0.8-3.4 Lymph % 24.7 % 17.0-46.1 Mean Cell Volume 88.8 fl 80.9-99.0 Mean Corpuscular HGB 29.9 pg 25.9-32.7 Mean Corpuscular HGB Conc 33.7 g/dL 30.8-34.3 Mean Platelet Volume 9.6 fL 8.9-12.4 [place] # 0.46 K/uL 0.3-0.9 [place] % 9.8 % 4.3-13.2 Neut# 3.01 K/uL 1.0-7.0 Neut% 64.3 % 40.4-72.8 Platelet Count 307 K/uL 155-360 Potassium 4.0 mmol/L 3.5-5.1 Red Blood Count 4.91 M/uL 3.90-5.40 Red Cell Distri Width %CV 13.5 % 11.7-14.4 Red Cell Distri Width SD 42.9 fl 3-47 SGPT/Alt 18 U/L Low 30-65 Sedimentation Rate 11 mm/hr 0-30 Sgot/Ast 14 U/L Low 16-40 Sodium 139 mmol/L 136-145 Thyroid Stim Hormone 2.22 uIU/mL 0.49-4.67 Total Protein 8.3 g/dL High 6.3-8.0 Vitamin D,25-Hydroxy 21.2 ng/mL Low 30.0-100.0 56 White Blood Count 4.7 K/uL 3.1-10.7 CBC/Manual 03/09/2012 N2N/[employer] Import CBC/Manual See Note 57 Differential Differential Hematocrit 43.6 % 36.0-46.1 Hemoglobin 14.7 gm/dL 11.6-15.8 Mean Cell Volume 88.8 fl 80.9-99.0 Mean Corpuscular HGB 29.9 pg 25.9-32.7 Mean Corpuscular HGB Conc 33.7 g/dL 30.8-34.3 Mean Platelet Volume 9.6 fL 8.9-12.4 Platelet Count 307 K/uL 155-360 Red Blood Count 4.91 M/uL 3.90-5.40 Red Cell Distri Width %CV 13.5 % 11.7-14.4 White Blood Count 4.7 K/uL 3.1-10.7 LDL Cholesterol Profile 03/09/2012 N2N/[employer] Import Cholesterol 194 mg/dL 120-200 HDL Cholesterol 36 mg/dL 29-83 LDL-Cholesterol 127 mg/dL 62-185 Triglycerides 153 mg/dL 16-231 Sjogren's 03/09/2012 N2N/CCD Import Sjogrens >8.0 High 0.0-0.9 58 Antibodies Antibodies (SSB) Sjogrens Antibodies (Ssa) >8.0 High 0.0-0.9 Laboratory test finding 09/18/2011 N2N/CCD Import Alb/Glob 0.9 ratio Albumin 4.1 g/dL 3.5-5.0 Alkaline Phosphatase 50 U/L 50-136 Anion Gap 13 mEq/L 8-16 BUN 11 mg/dL 5-23 BUN/Creat 11.0 ratio Bas% 0.4 % 0.0-1.1 Baso # 0.02 K/uL 0.0-0.1 Bilirubin,Total 0.5 mg/dL 0.2-1.2 Calcium 9.2 mg/dL 8.5-10.1 Carbon Dioxide 24 mEq/L 18-29 Chloride 107 mmol/L 98-107 Creatinine 1.0 mg/dL 0.5-1.4 Eo% 0.4 % 0.0-6.6 Eos # 0.02 K/uL 0.0-0.5 Globulin 4.6 g/dL High 1.9-4.3 Glom Filtration Rate, Estimate >60 mL/min >60 Glucose 104 mg/dL 76-115 Hematocrit 42.4 % 36.0-46.1 Hemoglobin 14.6 gm/dL 11.6-15.8 If >60 mL/min >60 59 Lymph # 0.98 K/uL 0.8-3.4 Lymph % 20.2 % 17.0-46.1 Mean Cell Volume 87.2 fl 80.9-99.0 Mean Corpuscular HGB 30.0 pg 25.9-32.7 Mean Corpuscular HGB Conc 34.4 g/dL High 30.8-34.3 Mean Platelet Volume 10.0 fL 8.9-12.4 [place] # 0.45 K/uL 0.3-0.9 [place] % 9.3 % 4.3-13.2 Neut# 3.39 K/uL 1.0-7.0 Neut% 69.7 % 40.4-72.8 Platelet Count 314 K/uL 155-360 Potassium 3.9 mmol/L 3.5-5.1 Red Blood Count 4.86 M/uL 3.90-5.40 Red Cell Distri Width %CV 13.4 % 11.7-14.4 Red Cell Distri Width SD 41.9 fl 3-47 SGPT/Alt 19 U/L Low 30-65 Sgot/Ast 18 U/L 16-40 Sodium 140 mmol/L 136-145 Thyroid Stim Hormone 3.47 uIU/mL 0.49-4.67 Total Protein 8.7 g/dL High 6.3-8.0 Vitamin D,25-Hydroxy 18.6 ng/mL Low 30.0-100.0 60 White Blood Count 4.9 K/uL 3.1-10.7 Laboratory test 05/05/2011 N2N/CCD Import Thyroid Stim 2.86 uIU/mL 0.49- 4.67 finding Hormone Vitamin D,25-Hydroxy 14.4 ng/mL Low 30.0-100.0 61 Laboratory test finding 03/18/2011 N2N/CCD Import Alb/Glob 0.9 ratio Albumin 3.9 g/dL 3.5-5.0 Alkaline Phosphatase 45 U/L Low 50-136 Anion Gap 14 mEq/L 8-16 BUN 13 mg/dL 5-23 BUN/Creat 13.0 ratio Bas% 0.4 % 0.0-1.1 Baso # 0.02 K/uL 0.0-0.1 Bilirubin,Total 0.5 mg/dL 0.2-1.2 Calcium 9.3 mg/dL 8.5-10.1 Carbon Dioxide 25 mEq/L 18-29 Chloride 105 mmol/L 98-107 Creatinine 1.0 mg/dL 0.5-1.4 Eo% 0.4 % 0.0-6.6 Eos # 0.02 K/uL 0.0-0.5 Globulin 4.2 g/dL 1.9-4.3 Glom Filtration Rate, Estimate >60 mL/min >60 Glucose 85 mg/dL 76-115 Hematocrit 42.6 % 36.0-46.1 Hemoglobin 14.3 gm/dL 11.6-15.8 If >60 mL/min >60 62 Lymph # 1.27 K/uL 0.8-3.4 Lymph % 27.1 % 17.0-46.1 Mean Cell Volume 90.1 fl 80.9-99.0 Mean Corpuscular HGB 30.2 pg 25.9-32.7 Mean Corpuscular HGB Conc 33.6 g/dL 30.8-34.3 Mean Platelet Volume 9.7 fL 8.9-12.4 [place] # 0.53 K/uL 0.3-0.9 [place] % 11.3 % 4.3-13.2 Neut# 2.85 K/uL 1.0-7.0 Neut% 60.8 % 40.4-72.8 Platelet Count 298 K/uL 155-360 Potassium 3.8 mmol/L 3.5-5.1 Red Blood Count 4.73 M/uL 3.90-5.40 Red Cell Distri Width %CV 13.4 % 11.7-14.4 Red Cell Distri Width SD 42.8 fl 3-47 SGPT/Alt 16 U/L Low 30-65 Sgot/Ast 15 U/L Low 16-40 Sodium 140 mmol/L 136-145 Thyroid Stim Hormone 5.83 uIU/mL High 0.49-4.67 Total Protein 8.1 g/dL High 6.3-8.0 Vitamin D,25-Hydroxy 9.1 ng/mL Low 32.0-100.0 63 White Blood Count 4.7 K/uL 3.1-10.7 LDL Cholesterol Profile 03/18/2011 N2N/CCD Import Cholesterol 190 mg/dL 120-200 HDL Cholesterol 40 mg/dL 29-83 LDL-Cholesterol 120 mg/dL 62-185 Triglycerides 152 mg/dL 16-231 Laboratory test 10/08/2010 N2N/CCD Import Thyroid Stim 3.46 uIU/mL 0.49- 4.67 64 finding Hormone Laboratory test 03/07/2010 N2N/CCD Import Alb/Glob 0.9 finding Albumin 3.9 g/dL 3.5-5.0 Alkaline Phosphatase 64 U/L 50-136 Anion Gap 10 mEq/L 8-16 BUN 12 mg/dL 5-23 BUN/Creat 13.3 Bas% 0.2 % 0.0-1.1 Baso # 0.0 K/uL 0.0-0.1 Bilirubin,Total 0.5 mg/dL 0.2-1.2 C-Reactive Protein,Quant 3.2 mg/L 0.0-4.9 65 Calcium 8.6 mg/dL 8.5-10.1 Carbon Dioxide 27 mEq/L 21-32 Chloride 107 mEq/L 98-107 Creatinine 0.9 mg/dL 0.5-1.4 Eo% 0.2 % 0.0-6.6 Eos # 0.0 K/uL 0.0-0.5 Globulin 4.4 gm/dL High 1.9-4.3 Glom Filtration Rate, Estimate >60 mL/min >60 Glucose 100 mg/dL 76-115 Hematocrit 41.9 % 36.0-46.1 Hemoglobin 14.0 gm/dL 11.6-15.8 If >60 mL/min >60 66 Lymph # 1.3 K/uL 0.8-3.4 Lymph % 28.5 % 17.0-46.1 Mean Cell Volume 88.6 fl 80.9-99.0 Mean Corpuscular HGB 29.6 pg 25.9-32.7 Mean Corpuscular HGB Conc 33.4 g/dL 30.8-34.3 Mean Platelet Volume 9.5 fL 8.9-12.4 [place] # 0.4 K/uL 0.3-0.9 [place] % 9.3 % 4.3-13.2 Neut# 2.7 K/uL 1.0-7.0 Neut% 61.8 % 40.4-72.8 Platelet Count 284 K/uL 155-360 Potassium 3.5 mEq/L 3.5-5.1 Red Blood Count 4.73 M/uL 3.90-5.40 Red Cell Distri Width %CV 13.5 % 11.7-14.4 Red Cell Distri Width SD 43 fl 3-47 SGPT/Alt 27 U/L Low 30-65 Sedimentation Rate 9 mm/hr 0-30 67 Sgot/Ast 19 U/L 16-40 Sodium 140 mEq/L 136-145 Thyroid Stim Hormone 4.42 uIU/mL 0.49-4.67 68 Total Protein 8.3 g/dL High 6.3-8.0 White Blood Count 4.4 K/uL 3.1-10.7 LDL Cholesterol 03/07/2010 N2N/CCD Import Cholesterol 206 mg/dL High 120- 200 Profile HDL Cholesterol 42 mg/dL 32-96 LDL-Cholesterol 137 mg/dL 62-185 Triglycerides 137 mg/dL 0-210 Sjogren's 03/07/2010 N2N/CCD Import Sjogrens >8.0 High 0.0-0.9 Antibodies Antibodies (SSB) Sjogrens Antibodies (Ssa) >8.0 High 0.0-0.9 Laboratory test finding 06/26/2009 N2N/CCD Import Alb/Glob 0.8 Albumin 3.9 g/dL 3.5-5.0 Alkaline Phosphatase 67 U/L 50-136 Anion Gap 11 mEq/L 8-16 BUN 12 mg/dL 5-23 BUN/Creat 13.3 Bas% 0.2 % 0.0-1.1 Baso # 0.0 K/uL 0.0-0.1 Bilirubin,Total 0.4 mg/dL 0.2-1.2 Calcium 8.9 mg/dL 8.5-10.1 Carbon Dioxide 28 mEq/L 21-32 Chloride 103 mEq/L 98-107 Creatinine 0.9 mg/dL 0.5-1.4 Eo% 0.2 % 0.0-6.6 Eos # 0.0 K/uL 0.0-0.5 Estimated GFR Panel Globulin 4.8 gm/dL High 1.9-4.3 Glom Filtration Rate, Estimate >60 mL/min >60 Glucose 94 mg/dL 76-115 Hematocrit 42.4 % 36.0-46.1 Hemoglobin 14.3 gm/dL 11.6-15.8 If >60 mL/min >60 69 Lymph # 1.2 K/uL 0.8-3.4 Lymph % 29.5 % 17.0-46.1 Mean Cell Volume 89.5 fl 80.9-99.0 Mean Corpuscular HGB 30.2 pg 25.9-32.7 Mean Corpuscular HGB Conc 33.7 g/dL 30.8-34.3 Mean Platelet Volume 9.0 fL 8.9-12.4 [place] # 0.4 K/uL 0.3-0.9 [place] % 8.4 % 4.3-13.2 Neut# 2.6 K/uL 1.0-7.0 Neut% 61.7 % 40.4-72.8 Platelet Count 286 K/uL 155-360 Potassium 3.7 mEq/L 3.5-5.1 Red Blood Count 4.74 M/uL 3.90-5.40 Red Cell Distri Width %CV 13.0 % 11.7-14.4 Red Cell Distri Width SD 42 fl 3-47 SGPT/Alt 29 U/L Low 30-65 Sgot/Ast 23 U/L 16-40 Sodium 138 mEq/L 136-145 Thyroid Stim Hormone 4.30 uIU/mL 0.49-4.67 Total Protein 8.7 g/dL High 6.3-8.0 White Blood Count 4.2 K/uL 3.1-10.7 LDL Cholesterol Profile 06/26/2009 N2N/CCD Import Cholesterol 169 mg/dL 120-200 HDL Cholesterol 40 mg/dL 32-96 LDL-Cholesterol 100 mg/dL 62-185 Triglycerides 147 mg/dL 0-210 Laboratory test finding 10/09/2008 N2N/CCD Import Alb/Glob 0.8 Albumin 4.0 g/dL 3.5-5.0 Alkaline Phosphatase 74 U/L 50-136 Anion Gap 10 mEq/L 8-16 BUN 9 mg/dL 5-23 BUN/Creat 11.2 Bas% 0.0 % 0.0-1.1 Baso # 0.0 K/uL 0.0-0.1 Bilirubin,Total 0.6 mg/dL 0.2-1.2 Calcium 9.2 mg/dL 8.5-10.1 Carbon Dioxide 30 mEq/L 21-32 Chloride 102 mEq/L 98-107 Creatinine 0.8 mg/dL 0.5-1.4 Eo% 0.0 % 0.0-6.6 Eos # 0.0 K/uL 0.0-0.5 Globulin 5.2 gm/dL High 1.9-4.3 Glom Filtration Rate, Estimate >60 mL/min >60 Glucose 87 mg/dL 76-115 Hematocrit 44.1 % 36.0-46.1 Hemoglobin 15.0 gm/dL 11.6-15.8 If >60 mL/min >60 70 Lymph # 1.2 K/uL 0.8-3.4 Lymph % 35.5 % 17.0-46.1 Mean Cell Volume 86.6 fl 80.9-99.0 Mean Corpuscular HGB 29.5 pg 25.9-32.7 Mean Corpuscular HGB Conc 34.0 g/dL 30.8-34.3 Mean Platelet Volume 10.0 fL 8.9-12.4 [place] # 0.3 K/uL 0.3-0.9 [place] % 8.4 % 4.3-13.2 Neut# 1.9 K/uL 1.0-7.0 Neut% 56.1 % 40.4-72.8 Platelet Count 269 K/uL 155-360 Potassium 3.8 mEq/L 3.5-5.1 Red Blood Count 5.09 M/uL 3.90-5.40 Red Cell Distri Width %CV 13.4 % 11.7-14.4 Red Cell Distri Width SD 42 fl 3-47 SGPT/Alt 35 U/L 30-65 Sgot/Ast 22 U/L 16-40 Sodium 138 mEq/L 136-145 Thyroid Stim Hormone 2.44 uIU/mL 0.49-4.67 Total Protein 9.2 g/dL High 6.3-8.0 White Blood Count 3.4 K/uL 3.1-10.7 LDL Cholesterol Profile 10/09/2008 N2N/CCD Import Cholesterol 194 mg/dL 120-200 HDL Cholesterol 38 mg/dL 32-96 LDL-Cholesterol 136 mg/dL 62-185 Triglycerides 100 mg/dL 0-210 Protein Electro.,S 10/09/2008 N2N/CCD Import A/G Ratio 0.9 0.7-2.0 Albumin 4.0 g/dL 3.2-5.6 Lneie-0-Rwvdyeih 0.2 g/dL 0.1-0.4 Qneny-4-Atvyyuum 0.6 g/dL 0.4-1.2 Beta Globulin 1.1 g/dL 0.6-1.3 Gamma Globulin 2.7 g/dL High 0.5-1.6 Globulin, Total 4.6 g/dL High 2.0-4.5 M-Arsh Not Observed Not Observed g Note: (See Note) 71 Protein,Total,Serum 8.6 g/dL High 6.0-8.5 Protein Electrophoresis,[place]-U 10/09/2008 N2N/CCD Import Albumin,U 37.0 % . Bqbjk-4-Fyyixgvo 3.8 % . Oaewm-1-Lrhslghi 21.5 % . Beta Globulin,U 23.1 % . Gamma Globulin,U 14.5 % . M-Arsh,% Not Observed Not Observed % Note: (See Note) 72 Protein,Total,Urine 10.6 mg/dL 0.0-15.0 Laboratory test finding 07/17/2008 N2N/CCD Import Alb/Glob 0.8 Albumin 3.9 g/dL 3.5-5.0 Alkaline Phosphatase 68 U/L 50-136 Anion Gap 9 mEq/L 8-16 BUN 11 mg/dL 5-23 BUN/Creat 13.7 Bas% 0.0 % 0.0-1.1 Baso # 0.0 K/uL 0.0-0.1 Bilirubin,Total 0.5 mg/dL 0.2-1.2 Calcium 8.9 mg/dL 8.5-10.1 Carbon Dioxide 27 mEq/L 21-32 Chloride 104 mEq/L 98-107 Creatinine 0.8 mg/dL 0.5-1.4 Eo% 0.0 % 0.0-6.6 Eos # 0.0 K/uL 0.0-0.5 Globulin 4.9 gm/dL High 1.9-4.3 Glom Filtration Rate, Estimate >60 mL/min >60 Glucose 85 mg/dL 76-115 Hematocrit 41.8 % 36.0-46.1 Hemoglobin 14.4 gm/dL 11.6-15.8 If >60 mL/min >60 73 Lymph # 1.5 K/uL 0.8-3.4 Lymph % 38.0 % 17.0-46.1 Mean Cell Volume 85.8 fl 80.9-99.0 Mean Corpuscular HGB 29.6 pg 25.9-32.7 Mean Corpuscular HGB Conc 34.4 g/dL High 30.8-34.3 Mean Platelet Volume 9.6 fL 8.9-12.4 [place] # 0.4 K/uL 0.3-0.9 [place] % 11.0 % 4.3-13.2 Neut# 2.0 K/uL 1.0-7.0 Neut% 51.0 % 40.4-72.8 Platelet Count 279 K/uL 155-360 Potassium 3.6 mEq/L 3.5-5.1 Red Blood Count 4.87 M/uL 3.90-5.40 Red Cell Distri Width %CV 14.1 % 11.7-14.4 Red Cell Distri Width SD 43 fl 3-47 SGPT/Alt 32 U/L 30-65 Sgot/Ast 20 U/L 16-40 Sodium 136 mEq/L 136-145 Thyroid Stim Hormone 4.47 uIU/mL 0.49-4.67 Total Protein 8.8 g/dL High 6.3-8.0 White Blood Count 3.8 K/uL 3.1-10.7 LDL Cholesterol Profile 07/17/2008 N2N/[employer] Import Cholesterol 180 mg/dL 120-200 HDL Cholesterol 35 mg/dL 32-96 LDL-Cholesterol 127 mg/dL 62-185 Triglycerides 90 mg/dL 0-210 Laboratory test finding 03/31/2008 N2N/CCD Import Pathology Exam (See Note ) 74 Laboratory test finding 01/11/2008 N2N/CCD Import Alb/Glob 0.8 Albumin 4.1 g/dL 3.5-5.0 Alkaline Phosphatase 62 U/L 50-136 Anion Gap 12 mEq/L 8-16 BUN 11 mg/dL 5-23 BUN/Creat 12.2 Bas% 0.2 % 0.0-1.1 Baso # 0.0 K/uL 0.0-0.1 Bilirubin,Total 0.4 mg/dL 0.2-1.2 Calcium 9.1 mg/dL 8.5-10.1 Carbon Dioxide 27 mEq/L 21-32 Chloride 102 mEq/L 98-107 Creatinine 0.9 mg/dL 0.5-1.4 Eo% 0.2 % 0.0-6.6 Eos # 0.0 K/uL 0.0-0.5 Globulin 5.1 gm/dL High 1.9-4.3 Glucose 88 mg/dL 76-115 Hematocrit 43.8 % 36.0-46.1 Hemoglobin 14.6 gm/dL 11.6-15.8 Lymph # 1.4 K/uL 0.8-3.4 Lymph % 34.4 % 17.0-46.1 Mean Cell Volume 86.9 fl 80.9-99.0 Mean Corpuscular HGB 29.0 pg 25.9-32.7 Mean Corpuscular HGB Conc 33.3 g/dL 30.8-34.3 Mean Platelet Volume 9.4 fL 8.9-12.4 [place] # 0.5 K/uL 0.3-0.9 [place] % 12.3 % 4.3-13.2 Neut# 2.2 K/uL 1.0-7.0 Neut% 52.9 % 40.4-72.8 Platelet Count 314 K/uL 155-360 Potassium 4.0 mEq/L 3.5-5.1 Red Blood Count 5.04 M/uL 3.90-5.40 Red Cell Distri Width %CV 13.6 % 11.7-14.4 Red Cell Distri Width SD 42 fl 3-47 SGPT/Alt 38 U/L 30-65 Sgot/Ast 26 U/L 16-40 Sodium 137 mEq/L 136-145 Thyroid Stim Hormone 1.18 uIU/mL 0.49-4.67 Total Protein 9.2 g/dL High 6.3-8.0 White Blood Count 4.2 K/uL 3.1-10.7 Protein Electrophoresis,[place]-U 01/11/2008 N2N/[employer] Import Albumin,U 100.0 % . Nitkd-3-Idedhfea 0.0 % . Dvagp-0-Fpsersrp 0.0 % . Beta Globulin,U 0.0 % . Gamma Globulin,U 0.0 % . M-Arsh,% Not Observed Not Observed % Note: (See Note) 75 Protein,Total,Urine 18.1 mg/dL High 0.0-15.0 Protein Electro.,S 01/11/2008 N2N/CCD Import A/G Ratio 0.8 0.7-2.0 Albumin 3.9 g/dL 3.2-5.6 Tzxxi-0-Gouddtcz 0.2 g/dL 0.1-0.4 Kfgwa-6-Uqzruqhk 0.6 g/dL 0.4-1.2 Beta Globulin 1.1 g/dL 0.6-1.3 Gamma Globulin 2.7 g/dL High 0.5-1.6 Globulin, Total 4.6 g/dL High 2.0-4.5 M-Arsh Not Observed Not Observed g Note: (See Note) 76 Protein,Total,Serum 8.5 g/dL 6.0-8.5 LDL Cholesterol 01/11/2008 N2N/[employer] Import Cholesterol 224 mg/dL High 120- 200 Profile HDL Cholesterol 35 mg/dL 32-96 LDL-Cholesterol 148 mg/dL 62-185 Triglycerides 205 mg/dL 0-210 Laboratory test 11/30/2007 N2N/CCD Import Thyroid Stim 0.24 uIU/mL Low 0.49-4.67 77 finding Hormone Laboratory test 10/08/2007 N2N/CCD Import Alb/Glob 0.9 finding Albumin 4.2 g/dL 3.5-5.0 Alkaline Phosphatase 60 U/L 50-136 Anion Gap 10 mEq/L 8-16 BUN 11 mg/dL 5-23 BUN/Creat 12.2 Bas% 0.0 % 0.0-1.1 Baso # 0.0 K/uL 0.0-0.1 Bilirubin,Total 0.6 mg/dL 0.2-1.2 Calcium 9.1 mg/dL 8.5-10.1 Carbon Dioxide 27 mEq/L 21-32 Chloride 103 mEq/L 98-107 Creatinine 0.9 mg/dL 0.5-1.4 Eo% 0.0 % 0.0-6.6 Eos # 0.0 K/uL 0.0-0.5 Globulin 4.9 gm/dL High 1.9-4.3 Glucose 100 mg/dL 76-115 Hematocrit 45.0 % 36.0-46.1 Hemoglobin 14.9 gm/dL 11.6-15.8 Lymph # 1.7 K/uL 0.8-3.4 Lymph % 31.7 % 17.0-46.1 Mean Cell Volume 86.7 fl 80.9-99.0 Mean Corpuscular HGB 28.7 pg 25.9-32.7 Mean Corpuscular HGB Conc 33.1 g/dL 30.8-34.3 Mean Platelet Volume 9.6 fL 8.9-12.4 [place] # 0.5 K/uL 0.3-0.9 [place] % 10.3 % 4.3-13.2 Neut# 3.0 K/uL 1.0-7.0 Neut% 58.0 % 40.4-72.8 Platelet Count 303 K/uL 155-360 Potassium 3.9 mEq/L 3.5-5.1 Red Blood Count 5.19 M/uL 3.90-5.40 Red Cell Distri Width %CV 13.6 % 11.7-14.4 Red Cell Distri Width SD 43 fl 3-47 SGPT/Alt 37 U/L 30-65 Sgot/Ast 21 U/L 16-40 Sodium 136 mEq/L 136-145 Total Protein 9.1 g/dL High 6.3-8.0 White Blood Count 5.2 K/uL 3.1-10.7 LDL Cholesterol 10/08/2007 N2N/CCD Import Cholesterol 210 mg/dL High 120- 200 Profile HDL Cholesterol 40 mg/dL 32-96 LDL-Cholesterol 148 mg/dL 62-185 Triglycerides 111 mg/dL 0-210 Laboratory test 10/08/2007 N2N/CCD Import Thyroid Stim 9.11 uIU/mL High 0.49-4.67 finding Hormone Laboratory test 04/20/2007 N2N/CCD Import Alb/Glob 0.9 finding Albumin 4.0 g/dL 3.5-5.0 Alkaline Phosphatase 58 U/L 50-136 Anion Gap 11 mEq/L 8-16 Atypical Lymph% 1 % 0-7 BUN 11 mg/dL 5-23 BUN/Creat 11.0 Band% 5 % 0-8 Bilirubin,Total 0.4 mg/dL 0.2-1.2 CBS W/Automated Diff DNR 78 Calcium 9.0 mg/dL 8.5-10.1 Carbon Dioxide 28 mEq/L 21-32 Chloride 102 mEq/L 98-107 Creatinine 1.0 mg/dL 0.5-1.4 Globulin 4.3 gm/dL 1.9-4.3 Glucose 94 mg/dL 76-115 Hematocrit 41.7 % 34.0-46.0 Hemoglobin 14.8 gm/dL 11.5-15.5 Lymph% 37 % 17-56 Mean Cell Volume 88.9 fL 80.0-96.0 Mean Corpuscular HGB 31.4 pg 27.0-33.0 Mean Corpuscular HGB Conc 35.4 g/dL 31.7-36.0 Mean Platelet Volume 6.6 fl 6.6-10.6 Monocyte% 5 % 0-10 Neutrophils% 52 % 33-73 Platelet Count 340 K/uL 150-400 Platelet Estimate Normal Potassium 4.2 mEq/L 3.5-5.1 RBC Morphology Normal Red Blood Count 4.69 M/uL 3.90-5.20 Red Cell Distri Width %CV 12.8 % 11.6-15.8 SGPT/Alt 36 U/L 30-65 Sgot/Ast 23 U/L 16-40 Sodium 137 mEq/L 136-145 Thyroid Stim Hormone 3.92 uIU/mL 0.49-4.67 Total Cells Counted 100 #CELLS Total Protein 8.3 g/dL High 6.3-8.0 White Blood Count 4.1 K/uL 3.4-10.5 1 3 mos 2 Clinical Guidelines for recommended serum 25(OH)Vitamin D Deficient at less than 20 ng/mL Insufficient at 20 to <30 ng/mL Sufficient at 30-100 ng/mL Toxicity at greater than 100 ng/mL 3 Updated reference range on new analyzer 4 Updated reference range on new analyzer 5 Concerning GFR Guidelines for Americans: Normal function or mild renal disease, if clinically at risk: >/=60 mL/min Moderately decreased: 30-59 Severely decreased: 15-29 Renal failure: <15 6 Concerning GFR Guidelines: Normal function or mild renal disease, if clinically at risk: >/=60 mL/min Moderately decreased: 30-59 Severely decreased: 15-29 Renal failure: <15 Glomerular Filtration Rate (GFR) is estimated based on the MDRD equation, which assumes a steady state for creatinine as recommended by the National Kidney Disease Education Program in conjunction with the National Institutes of Health and the National Kidney Foundation. Clinical conditions in which it may be necessary to measure GFR by using clearance methods include extremes of age and body size, severe malnutrition or obesity, diseases of skeletal muscle, paraplegia or quadriplegia, vegetarian diet, rapidly changing kidney function, and calculation of the dose of potentially toxic drugs that are excreted by the kidneys. 7 Updated Reference Range 8 CAN B12 BEST TESTED WELL??? 6 mos 9 Clinical Guidelines for recommended serum 25(OH)Vitamin D Deficient at less than 20 ng/mL Insufficient at 20 to <30 ng/mL Sufficient at 30-100 ng/mL Toxicity at greater than 100 ng/mL 10 NO MONOCLONAL PROTEIN IDENTIFIED MD DEONTE 09/14/17 Unless otherwise specified, testing performed by [facility] [place] [address] 11 Unless otherwise specified, testing performed by [facility] [address] [place] [id number] 12 URINE PROTEIN MAY BE FALSELY ELEVATED DURING TREATMENT WITH AMINOGLYCOSIDES DUE TO METHOD INTERFERENCE. SEE NOTE: THE AMOUNT OF PROTEIN IN THE SPECIMEN IS INSUFFICIENT TO SUCCESSFULLY BE DETECTED BY ELECTROPHORESIS. 13 3 mo 14 Per NCEP ATP III Guidelines: Results lower than 40 mg/dL are suggestive of increased risk for coronary artery disease. Results > or=to 60 mg/dL are considered a negative risk factor. 15 Per NCEP ATP III Guidelines: Normal Population <130 Patients with medical conditions: CHD/DM Optimal: <100 Borderline high: 130-159 High: 160-189 Very high: >189 16 3 mos 17 6 mos 18 BACK/ABD PAIN 19 10,000 - 50,000 CFU/mL 20 URINE, CLEAN CATCH 21 Concerning GFR Guidelines for Americans: Normal function or mild renal disease, if clinically at risk: >/=60 mL/min Moderately decreased: 30-59 Severely decreased: 15-29 Renal failure: <15 22 Concerning GFR Guidelines: Normal function or mild renal disease, if clinically at risk: >/=60 mL/min Moderately decreased: 30-59 Severely decreased: 15-29 Renal failure: <15 Glomerular Filtration Rate (GFR) is estimated based on the MDRD equation, which assumes a steady state for creatinine as recommended by the National Kidney Disease Education Program in conjunction with the National Institutes of Health and the National Kidney Foundation. Clinical conditions in which it may be necessary to measure GFR by using clearance methods include extremes of age and body size, severe malnutrition or obesity, diseases of skeletal muscle, paraplegia or quadriplegia, vegetarian diet, rapidly changing kidney function, and calculation of the dose of potentially toxic drugs that are excreted by the kidneys. 23 OBSTRUCTIVE SLEEP APNEA 24 6 weeks 25 6 mos 26 Concerning GFR Guidelines for Americans: Normal function or mild renal disease, if clinically at risk: >/=60 mL/min Moderately decreased: 30-59 Severely decreased: 15-29 Renal failure: <15 27 Concerning GFR Guidelines: Normal function or mild renal disease, if clinically at risk: >/=60 mL/min Moderately decreased: 30-59 Severely decreased: 15-29 Renal failure: <15 Glomerular Filtration Rate (GFR) is estimated based on the MDRD equation, which assumes a steady state for creatinine as recommended by the National Kidney Disease Education Program in conjunction with the National Institutes of Health and the National Kidney Foundation. Clinical conditions in which it may be necessary to measure GFR by using clearance methods include extremes of age and body size, severe malnutrition or obesity, diseases of skeletal muscle, paraplegia or quadriplegia, vegetarian diet, rapidly changing kidney function, and calculation of the dose of potentially toxic drugs that are excreted by the kidneys. 28 URINE PROTEIN MAY BE FALSELY ELEVATED DURING TREATMENT WITH AMINOGLYCOSIDES DUE TO METHOD INTERFERENCE. SEE NOTE: THE AMOUNT OF PROTEIN IN THE SPECIMEN IS INSUFFICIENT TO SUCCESSFULLY BE DETECTED BY ELECTROPHORESIS. 29 NO MONOCLONAL PROTEIN IDENTIFIED P.SPIZUOCO,MD 08/22/15 30 3 mos 31 6 weeks 32 A low TSH should not be the sole basis for diagnosing primary hyperthyroidism, or primary hypopituitary function. Additional tests are suggested for confirmation. 33 Note: Persistent reduction for 3 months or more in an eGFR <60 mL/min/1.73 m2 defines CKD. Patients with eGFR values >/=60 mL/min/1.73 m2 may also have CKD if evidence of persistent proteinuria is present. The original MDRD equation for estimated GFR is not valid for patients less than 18 years of age. Additional information may be found at www.kdoqi.org. 34 Vitamin D deficiency has been defined by the [place] [employer] and an Endocrine Society practice guideline as a level of serum 25-OH vitamin D less than 20 ng/mL (1,2). The Endocrine Society went on to further define vitamin D insufficiency as a level between 21 and 29 ng/mL (2). 1. IOM ([place] [employer]). 2010. Dietary reference intakes for calcium and D. [place]: The National Academies Press. 2. Gagan MF, [place] SPAIN, Lashae BERNSTEIN, et al. Evaluation, treatment, and prevention of vitamin D deficiency: an Endocrine Society clinical practice guideline. JCEM. 2010; 96(7):1911-30. Performed at: RN - [facility] [address] [id number] Medical Laboratory Specialist: Mitra Alvarez MD, Phone: [phone] 35 Reference Guidelines*: Desirable: ........... < 200 mg/dL Borderline High: ..... 200-239 mg/dL High: ................ >=240 mg/dL * The National Cholesterol Education Program (NCEP) 36 Reference Guidelines*: Normal: ............. < 150 mg/dL Borderline High: .... 150-199 mg/dL High: ............... 200-499 mg/dL Very High: .......... > 500 mg/dL * Source: National Cholesterol Education Program (NCEP) 37 Reference Guidelines*: Low HDL: ..... < 40 mg/dL Normal: ..... 40-60 mg/dL Desirable: ... > 60 mg/dL *The National Cholesterol Education Program(NCEP) 38 Reference Guidelines*: Optimal:........... <100 mg/dL Near Optimal....... 100-129 mg/dL Borderline High.... 130-159 mg/dL High............... 160-189 mg/dL Very High.......... >=190 mg/dL * Source: National Cholesterol Education Program (NCEP) 39 Fastin hours 40 NO MONOCLONAL IDENTIFIED 41 POLYCLONAL INCREASE IN GAMMA GLOBULINS CONSISTENT WITH CHRONIC INFLAMMATION AND/OR LIVER DISEASE. Joesph RICE MD 12/12/14 Unless otherwise specified, testing performed by [facility] [address] [place] [id number] 42 6 mos 43 Concerning GFR Guidelines: Normal function or mild renal disease, if clinically at risk: >/=60 mL/min Moderately decreased: 30-59 Severely decreased: 15-29 Renal failure: <15 Glomerular Filtration Rate (GFR) is estimated based on the MDRD equation, which assumes a steady state for creatinine as recommended by the National Kidney Disease Education Program in conjunction with the National Institutes of Health and the National Kidney Foundation. Clinical conditions in which it may be necessary to measure GFR by using clearance methods include extremes of age and body size, severe malnutrition or obesity, diseases of skeletal muscle, paraplegia or quadriplegia, vegetarian diet, rapidly changing kidney function, and calculation of the dose of potentially toxic drugs that are excreted by the kidneys. 44 Concerning GFR Guidelines for Americans: Normal function or mild renal disease, if clinically at risk: >/=60 mL/min Moderately decreased: 30-59 Severely decreased: 15-29 Renal failure: <15 45 For -Beninese patients multiply result by 1.180 46 The SPE pattern reflects a polyclonal increase in gamma globulin due to numerous clones of plasma cells producing heterogeneous antibody in response to some form of antigenic stimulus. Hypergammaglob-ulinemia is found in a wide variety of infectious, non-infectious, and autoimmune disease states. Evidence of monoclonal protein is not apparent. Performed at: - [facility] [id number] Medical Laboratory Specialist: Mitra Alvarez MD, Phone: [phone] 47 Protein electrophoresis scan will follow via computer, mail, or gold prospector delivery. 48 Protein electrophoresis scan will follow via computer, mail, or gold prospector delivery. Performed at: [address] [id number] Medical Laboratory Specialist: Mitra Alvarez MD, Phone: [phone] 49 OPERATION/PROCEDURE Colonoscopy DIAGNOSIS: PART 1: "COLON, RANDOM BIOPSY": COLITIS, COMPATIBLE WITH MICROSCOPIC COLITIS, SEE COMMENT. PART 2: "TRANSVERSE AND SIGMOID COLON, POLYPECTOMY": HYPERPLASTIC POLYPS AND ADENOMATOUS POLYPS. PILLO/ zay INTERPRETATION COMMENT Part 1: The increased lymphocytic interstitial population is supportive of microscopic colitis, in the appropriate clinical context. GROSS Part 1; "RANDOM COLON BIOPSY". The specimen is received in an appropriately labeled container. This contains two rounded jacobson colored pieces of soft tissue measuring up to 0.4 cm.; filtered and submitted in toto within a single cassette. Part 2; "TRANSVERSE AND SIGMOID COLON POLYPS". The specimen is received in an appropriately labeled container. This contains seven rounded pink colored pieces of soft tissue measuring up to 0.9 cm.; filtered and submitted in toto within a single cassette. PILLO/zay MICROSCOPIC Part 1: Sections reveal colonic mucosa with well-oriented colonic crypts, with increased crypt mitotic activity and lymphocytic infiltrate. The stroma contains a slightly increased degree of eosinophils, lymphoplasmacytic infiltration, and edema. Part 2: Sections show polypoid fragmented colonic mucosa with hyperplastic, serrated glands and hyperchromatic, oval nuclei within cells lining tubular glands. PRE OPERATIVE DIAGNOSIS Diarrhea, history of polyp REVIEW CODE CODE: I ----- Signed Electronically signed BLANCA TUBBS MD 12/07/13 1206 ----- 50 For -Beninese patients multiply result by 1.180 51 Vitamin D deficiency has been defined by the [place] [employer] and an Endocrine Society practice guideline as a level of serum 25-OH vitamin D less than 20 ng/mL (1,2). The Endocrine Society went on to further define vitamin D insufficiency as a level between 21 and 29 ng/mL (2). 1. IOM ([place] [employer]). 2010. Dietary reference intakes for calcium and D. [place]: The National Academies Press. 2. [place] Poll[place], Lashae BERNSTEIN, et al. Evaluation, treatment, and prevention of vitamin D deficiency: an Endocrine Society clinical practice guideline. JCEM. 2010; 96(7):0661-30. Performed at: RN - [facility] [address] [id number] Medical Laboratory Specialist: Mitra Alvarez MD, Phone: [phone] 52 Note: Persistent reduction for 3 months or more in an eGFR <60 mL/min/1.73 m2 defines CKD. Patients with eGFR values >/=60 mL/min/1.73 m2 may also have CKD if evidence of persistent proteinuria is present. The original MDRD equation for estimated GFR is not valid for patients less than 18 years of age. Additional information may be found at www.kdoqi.org. 53 Result confirmed by repeat analysis. 54 Vitamin D deficiency has been defined by the [place] [employer] and an Endocrine Society practice guideline as a level of serum 25-OH vitamin D less than 20 ng/mL (1,2). The Endocrine Society went on to further define vitamin D insufficiency as a level between 21 and 29 ng/mL (2). 1. IOM ([place] [employer]). 2010. Dietary reference intakes for calcium and D. [place]: The National Academies Press. 2. [place] Poll[place], Lashae BERNSTEIN, et al. Evaluation, treatment, and prevention of vitamin D deficiency: an Endocrine Society clinical practice guideline. JCEM. 2010; 96(7):1911-30. Performed at: [facility] [address] [id number] Medical Laboratory Specialist: Mitra Alvarez MD, Phone: [phone] 55 Note: Persistent reduction for 3 months or more in an eGFR <60 mL/min/1.73 m2 defines CKD. Patients with eGFR values >/=60 mL/min/1.73 m2 may also have CKD if evidence of persistent proteinuria is present. The original MDRD equation for estimated GFR is not valid for patients less than 18 years of age. Additional information may be found at www.kdoqi.org. 56 Vitamin D deficiency has been defined by the [place] [employer] and an Endocrine Society practice guideline as a level of serum 25-OH vitamin D less than 20 ng/mL (1,2). The Endocrine Society went on to further define vitamin D insufficiency as a level between 21 and 29 ng/mL (2). 1. IOM ([place] [employer]). 2010. Dietary reference intakes for calcium and D. [place]: The National Academies Press. 2. Gagan MF, [place], Lashae BERNSTEIN, et al. Evaluation, treatment, and prevention of vitamin D deficiency: an Endocrine Society clinical practice guideline. JCEM. 2010; 96(7):1911-30. Performed at: [facility] [address] [id number] Medical Laboratory Specialist: Mitra Alvarez MD, Phone: [phone] 57 03/09/12 LAB.JWR DUPLICATE ORDER 58 Performed at: [facility] [address] [id number] Medical Laboratory Specialist: Mitra Alvarez MD, Phone: [phone] 59 Note: Persistent reduction for 3 months or more in an eGFR <60 mL/min/1.73 m2 defines CKD. Patients with eGFR values >/=60 mL/min/1.73 m2 may also have CKD if evidence of persistent proteinuria is present. The original MDRD equation for estimated GFR is not valid for patients less than 18 years of age. Additional information may be found at www.kdoqi.org. 60 Vitamin D deficiency has been defined by the [place] [employer] and an Endocrine Society practice guideline as a level of serum 25-OH vitamin D less than 20 ng/mL (1,2). The Endocrine Society went on to further define vitamin D insufficiency as a level between 21 and 29 ng/mL (2). 1. IOM ([place] [employer]). 2010. Dietary reference intakes for calcium and D. [place]: The National Academies Press. 2. [place] Pollard, Lashae BERNSTEIN, et al. Evaluation, treatment, and prevention of vitamin D deficiency: an Endocrine Society clinical practice guideline. JCEM. 2010; 96(7):1911-30. Performed at: - [facility] [address] [id number] Medical Laboratory Specialist: Daren Nava MD, Phone: [phone] 61 Vitamin D deficiency has been defined by the [place] [employer] and an Endocrine Society practice guideline as a level of serum 25-OH vitamin D less than 20 ng/mL (1,2). The Endocrine Society went on to further define vitamin D insufficiency as a level between 21 and 29 ng/mL (2). 1. IOM ([place] [employer]). 2011. Dietary reference intakes for calcium and D. [place]: The National Academies Press. 2. [place] Poll[place], Lashae BERNSTEIN, et al. Evaluation, treatment, and prevention of vitamin D deficiency: an Endocrine Society clinical practice guideline. JCEM. 2010; 96(7):1911-30. Please note reference interval change Performed at: - [facility] [id number] Medical Laboratory Specialist: Daren Nava MD, Phone: [phone] 62 Note: Persistent reduction for 3 months or more in an eGFR <60 mL/min/1.73 m2 defines CKD. Patients with eGFR values >/=60 mL/min/1.73 m2 may also have CKD if evidence of persistent proteinuria is present. The original MDRD equation for estimated GFR is not valid for patients less than 18 years of age. Additional information may be found at www.kdoqi.org. 63 Effective April 28, 2011 Vitamin D, 25-Hydroxy reference intervals will be changing to 30-100. Recent studies consider the lower limit of 32.0 ng/mL to be a threshold for optimal health. Shashank MELGOZA. J Nutr. 2004;135(2):317-22. Performed at: RN - [facility] [address] [place], [place] [id number] Medical Laboratory Specialist: Daren Nava MD, Phone: [phone] QUERY: @[facility] Pat ID: [id number] QUERY: @[facility] Req #: [id number] 65 Performed at: RN - [facility] [address] [place], [place] [id number] Medical Laboratory Specialist: Daren Nava MD, Phone: [phone] 66 Note: Persistent reduction for 3 months or more in an eGFR <60 mL/min/1.73 m2 defines CKD. Patients with eGFR values >/=60 mL/min/1.73 m2 may also have CKD if evidence of persistent proteinuria is present. The original MDRD equation for estimated GFR is not valid for patients less than 18 years of age. Additional information may be found at www.kdoqi.org. 67 QUERY: @[facility] Pat ID: QUERY: @[facility] Req #: 68 QUERY: @[facility] Pat ID: QUERY: @[facility] Req #: 69 Note: Persistent reduction for 3 months or more in an eGFR <60 mL/min/1.73 m2 defines CKD. Patients with eGFR values >/=60 mL/min/1.73 m2 may also have CKD if evidence of persistent proteinuria is present. The original MDRD equation for estimated GFR is not valid for patients less than 18 years of age. Additional information may be found at www.[email or web address]. 70 Note: Persistent reduction for 3 months or more in an eGFR <60 mL/min/1.73 m2 defines CKD. Patients with eGFR values >/=60 mL/min/1.73 m2 may also have CKD if evidence of persistent proteinuria is present. The original MDRD equation for estimated GFR is not valid for patients less than 18 years of age. Additional information may be found at www.[email or web address]. 71 Protein electrophoresis scan will follow via mail or gold prospector. 72 Protein electrophoresis scan will follow via mail or gold prospector. 73 Note: Persistent reduction for 3 months or more in an eGFR <60 mL/min/1.73 m2 defines CKD. Patients with eGFR values >/=60 mL/min/1.73 m2 may also have CKD if evidence of persistent proteinuria is present. The original MDRD equation for estimated GFR is not valid for patients less than 18 years of age. Additional information may be found at [email or web address]. 74 OPERATION/PROCEDURE Colon. DIAGNOSIS: "TRANSVERSE COLON POLYP": HYPERPLASTIC POLYP. WYS/ping 1247 GROSS "TRANSVERSE COLON POLYP ". The specimen is received in an appropriately labeled container. This contains five rounded pink jacobson colored pieces of soft tissue measuring up to 0.6 cm.; further sectioned and submitted in toto within a single cassette. WS/ping MICROSCOPIC Sections show colonic mucosa lined by an increased number of goblet cells. The glands have a serrated, saw tooth appearance. The nuclei are bland , and basal. PRE OPERATIVE DIAGNOSIS H/O polyp REVIEW CODE CODE: I ----- Signed ROSA LONG MD 04/03/08 ----- 75 Protein electrophoresis scan will follow via mail or gold prospector. 76 Protein electrophoresis scan will follow via mail or gold prospector. 77 A low TSH should not be the sole basis for diagnosing primary hyperthyroidism, or primary hypopituitary function. Additional tests are suggested for confirmation. 78 04/20/07 LAB.OPT DIFF NEEDED Procedures Date Code Description Status 05/11/2018 19924 Brief Emotional/Behav Assessment W/ Scoring Doc Per Completed Standard Inst 03/23/2018 90388 Brief Emotional/Behav Assessment W/ Scoring Doc Per Completed Standard Inst 10/21/2017 [id number] Mammogram Completed 09/17/2017 84530 Brief Emotional/Behav Assessment W/ Scoring Doc Per Completed Standard Inst 07/31/2017 01085 Measure Blood Oxygen Level Single Determination Completed 09/16/2016 34426 X-Ray Knee Complete W/Obliques & Tunnel And/Or Completed Standing Views 07/31/2016 21189 Echography Retroperitoneal Complete Completed 06/05/2016 48149 X-Ray Spine Lumbosacral Complete W/Oblique Views Completed 02/05/2016 62220 Measure Blood Oxygen Level Single Determination Completed 02/05/2016 20596 Electrocardiogram Complete Completed 11/06/2015 [id number] Mammogram Completed 10/17/2014 57963 Electrocardiogram Complete Completed 09/21/2014 62736 X-Ray Chest Two Views Frontal & Lateral Completed 12/06/2013 [id number] Colonoscopy Completed 12/06/2013 09346 Colonoscopy Flexible Diagnostic Completed 11/26/2013 32956 Bone Density Study, Single Photon Absorptiometry Completed 11/26/2013 [id number] Bone Mineral Density Test Completed 10/26/2013 89075 Mammography Unilateral Completed 11/27/2011 32340 Bone Density Study, Single Photon Absorptiometry Completed 09/25/2011 95136 Electrocardiogram Complete Completed 10/17/2010 39197 Bone Density Study, Single Photon Absorptiometry Completed 10/09/2008 36029 Mammography Unilateral Completed 02/14/2008 77301 ECHO Complete W/O Spectral Or Color Doppler Completed 01/21/2008 39427 Electrocardiogram Complete Completed 01/05/2004 77440 Cardiovascular Stress Test Interpretation & Report Completed Only 01/05/2004 90513 Cardiovascular Stress Test Physician Supervision Only Completed 12/18/2003 27879 Holter Physician Review&Interp 48 HRS Completed Encounters Type Date Location Provider Dx Diagnosis Office Visit 05/11/2018 [facility] Tamara Abel MD Z13.89 Encounter for 2:45p screening for other disorder F33.1 Major depressive disorder, recurrent, moderate G45.9 Transient cerebral ischemic attack, unspecified R00.2 Palpitations Z68.38 Body mass index (BMI) 38.0-38.9, adult Office Visit 04/13/2018 1:15p [facility] Tamara Abel MD F33.1 Major depressive disorder, recurrent, moderate Z68.38 Body mass index (BMI) 38.0-38.9, adult Office Visit 03/23/2018 1:15p [facility] Tamara Abel MD Z13.89 Encounter for screening for other disorder E55.9 Vitamin D deficiency, unspecified M35.00 Sicca syndrome, unspecified 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 E78.2 Mixed hyperlipidemia F33.1 Major depressive disorder, recurrent, moderate E03.9 Hypothyroidism, unspecified K52.839 Microscopic colitis, unspecified D51.9 Vitamin B12 deficiency anemia, unspecified Z13.31 Encounter for screening for depression L63.9 Alopecia areata, unspecified Z68.38 Body mass index (BMI) 38.0-38.9, adult Office Visit 12/21/2017 11:00a [facility] Tamara Abel MD E55.9 Vitamin D deficiency, unspecified M35.00 Sicca syndrome, unspecified 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 E78.2 Mixed hyperlipidemia F33.1 Major depressive disorder, recurrent, moderate E03.9 Hypothyroidism, unspecified K52.839 Microscopic colitis, unspecified Z71.9 Counseling, unspecified D51.9 Vitamin B12 deficiency anemia, unspecified Z68.37 Body mass index (BMI) 37.0-37.9, adult Office Visit 09/17/2017 11:00a [facility] Tamara Abel MD M35.00 Sicca syndrome, unspecified E55.9 Vitamin D deficiency, unspecified 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 E78.2 Mixed hyperlipidemia E03.9 Hypothyroidism, unspecified K52.839 Microscopic colitis, unspecified F33.1 Major depressive disorder, recurrent, moderate D51.9 Vitamin B12 deficiency anemia, unspecified Z68.36 Body mass index (BMI) 36.0-36.9, adult Office Visit 07/31/2017 3:00p [facility] Tamara Abel MD S22.42xA Multiple fractures of ribs, LEFT side, init for clos fx R55 Syncope and collapse R19.7 Diarrhea, unspecified Office Visit 03/19/2017 11:00a [facility] Tamara Abel MD E55.9 Vitamin D deficiency, unspecified M35.00 Sicca syndrome, unspecified 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 E78.2 Mixed hyperlipidemia F33.1 Major depressive disorder, recurrent, moderate E03.9 Hypothyroidism, unspecified K52.839 Microscopic colitis, unspecified Office Visit 12/16/2016 10:00a [facility] Tamara Abel MD E55.9 Vitamin D deficiency, unspecified M35.00 Sicca syndrome, unspecified 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 K51.90 Ulcerative colitis, unspecified, without complications E78.2 Mixed hyperlipidemia F33.1 Major depressive disorder, recurrent, moderate E03.9 Hypothyroidism, unspecified M54.2 Cervicalgia K52.839 Microscopic colitis, unspecified Office Visit 09/16/2016 11:00a [facility] Tamara Abel MD M35.00 Sicca syndrome, unspecified K51.90 Ulcerative colitis, unspecified, without complications F33.1 Major depressive disorder, recurrent, moderate E55.9 Vitamin D deficiency, unspecified 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 E78.2 Mixed hyperlipidemia E03.9 Hypothyroidism, unspecified Z11.59 Encounter for screening for other viral diseases M25.562 Pain in LEFT knee Office Visit 07/22/2016 3:45p [facility] Tamara Abel MD N39.0 Urinary tract infection, site not specified M54.5 Low back pain K80.20 Calculus of gallbladder w/o cholecystitis w/o obstruction Office Visit 06/05/2016 10:00a [facility] Tamara Abel MD R10.9 Unspecified abdominal pain M54.5 Low back pain Office Visit 04/01/2016 2:30p [facility] Tamara Abel MD E03.9 Hypothyroidism , unspecified N95.1 Menopausal and female climacteric states R07.9 Chest pain, unspecified Office Visit 02/12/2016 10:00a [facility] Tamara Abel MD E03.9 Hypothyroidism , unspecified F33.1 Major depressive disorder, recurrent, moderate E78.2 Mixed hyperlipidemia K51.90 Ulcerative colitis, unspecified, without complications 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 M35.00 Sicca syndrome, unspecified E55.9 Vitamin D deficiency, unspecified R07.9 Chest pain, unspecified N95.1 Menopausal and female climacteric states Office Visit 02/05/2016 11:15a [facility] Compagni, R07.9 Chest pain, unspecified KARI Sumner Office Visit 08/28/2015 11:00a [facility] Tamara Abel, D89.0 Polyclonal MD hypergammaglobulinemia E55.9 Vitamin D deficiency, unspecified M35.00 Sicca syndrome, unspecified F33.1 Major depressive disorder, recurrent, moderate D05.92 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 K51.80 Other ulcerative colitis without complications E03.9 Hypothyroidism, unspecified Office Visit 05/29/2015 10:30a [facility] Tamara Abel MD Z00.01 Encounter for general adult medical exam w abnormal findings 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 M35.00 Sicca syndrome, unspecified E55.9 Vitamin D deficiency, unspecified F33.1 Major depressive disorder, recurrent, moderate E03.9 Hypothyroidism, unspecified D05.92 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 K51.80 Other ulcerative colitis without complications E78.2 Mixed hyperlipidemia R00.2 Palpitations R51 Headache Office Visit 12/12/2014 3:30p [facility] Tamara Abel, 273.0 Polyclonal MD Hypergammaglobulinemia 710.2 Sicca Syndrome 268.9 Vitamin D Deficiency Unspec 296.32 Depressive Disorder Major Recurrent Moderate 244.9 Hypothyroidism Other Unspec 233.0 Carcinoma Breast 556.8 Ulcerative Colitis Other 272.2 Hyperlipidemia Mixed Office Visit 10/17/2014 11:15a [facility] Tamara Abel MD 785.1 Palpitations Office Visit 09/21/2014 1:00p [facility] Tamara Abel MD 785.1 Palpitations 786.2 Cough 268.9 Vitamin D Deficiency Unspec 710.2 Sicca Syndrome 233.0 Carcinoma Breast 273.0 Polyclonal Hypergammaglobulinemia 556.8 Ulcerative Colitis Other 272.2 Hyperlipidemia Mixed 244.9 Hypothyroidism Other Unspec 296.32 Depressive Disorder Major Recurrent Moderate Office Visit 07/06/2014 1:00p [facility] Tamara Abel MD 268.9 Vitamin D Deficiency Unspec 710.2 Sicca Syndrome 233.0 Carcinoma Breast 273.0 Polyclonal Hypergammaglobulinemia 556.8 Ulcerative Colitis Other 272.2 Hyperlipidemia Mixed 784.0 Headache 244.9 Hypothyroidism Other Unspec 296.32 Depressive Disorder Major Recurrent Moderate Plan of Treatment Future Appointment(s):09/14/2018 10:30 am - Schedule, Laboratory at [facility]2018 1:15 pm - Tamara Abel MD at [facility]06/02/2018 - Tamara Abel MDG45.9 Transient cerebral ischemic attack, unspecifiedNew Labs:TSH, Ordered: Comments:reviewed her studies - all are normal. offered referral to neurology. Her cholesterol is very good, so do not feel a statin is needed at this time. please go to er for symptoms. please start aspirin 81 mg dailyReferral:Renee Sadler,Follow up:september for routine follow-up with nonfasting labs yiwkpM75.9 Hypothyroidism, [id number] Body mass index ( BMI) 38.0-38.9, adultAllFollow up:3 mo follow-up without labs prior
--- OUTSIDE RECORDS SUMMARY | 2018-06-24 07:31 | XMS REPORT | Continuity of Care Document ---
:1955 External Reference #:[id number] Author Name Gemma Banerjee Care Team Providers Name Role Phone Tamara Abel MD Primary Care Physician Unavailable Payers Type Date Identification Numbers Payment Provider Subscriber Policy Number: [id number] [facility] Edie Handy PayID: [id number] [address] [address] [place] [address] Effective: 2011 Policy Number: [id number] [facility] Edie Handy Expires: 2014 PayID: [id number] [address] [address] [place] [address] Effective: 2005 Policy Number: [id number] [facility] Mina Handy Expires: 2011 PayID: [id number] [address] [address] [place] [address] Advance Directives Description No Information Available Problems Date Description Provider Status Onset: 03/18/2012 Sjogren's syndrome Abiodun Singleton M.D. Active Onset: 03/18/2012 Carpal tunnel syndrome Abiodun Singleton M.D. Active Onset: 03/18/2012 Medications [employer] (Current) Use Abiodun Singleton M.D. Active Encounter Onset: 10/26/2014 Taking medication Mirthaofia Davidson, [employer] Active Onset: 09/15/2013 Rheumatoid arthritis Abiodun Singleton M.D. Inactive Inactive: 05/22/2016 Onset: 01/06/2013 Eruption Abiodun Singleton M.D. Inactive Inactive: 05/22/2016 Family History Description No Information Available Social History Type Date Description Comments Sex Unknown Tobacco Use Start: Unknown Patient has never smoked Smoking Status Reviewed: 05/27/18 Patient has never smoked Allergies, Adverse Reactions, Alerts Description No Known Drug Allergies Medications Medication Date Status Form Strength Qnty SIG Indications Ordering Provider Triamcinolone 11/23/ Active Cream 0.1% 80gm use on R21 Zsofia Acetonide 2018 lesion Davidson, twice [employer] daily for 2 weeks on and 1 week off as needed Hydroxychloroquine 11/23/ Active Tablets 200mg 60tabs 2 tabs M35.00 Zsofia Sulfate 2018 by mouth Davidson, daily [employer] Z79.899 Clobetasol 05/25/2017 Active Cream 0.05% 60gm use on L40.9 Zsofia Propionate affected Davidson, area 2x [employer] daily for 2 weeks then 1 week off Fluocinonide 01/06/2013 Active Ointment 0.05% 30unit use on R21 Zsofia s affeected Davidson, area [employer] topically daily as needed Enedelia Active Tablets 180mg 90tabs 1 PO qd johanne Angelo MD Vitamin D High Active Capsules 1000Uni 1 by mouth Unknown Potency t every day Levothyroxine Sodium Active Tablets 88mcg daily Tamara Abel MD Vitamin B-12 Active 1 by mouth Unknown every day Hydroxychloroquine 05/22/2016 - Hx Tablets 200mg 60tabs 2 tabs by M35.00 Zsofia Sulfate 11/23/2017 mouth Davidson, daily [employer] Z79.899 Restasis 09/16/2011 - Hx Emulsion 0.05% 2trays one gtts Abiodun 12/15/2013 ou bid Sammie Singleton Restasis 09/12/2010 - Hx Emulsion 0.05% 56units 1 gtta Abiodun 09/16/2011 twice a Sammie Singleton day ou Hydroxychloroquine 09/12/2010 - Hx Tablets 200mg 60tabs take 1 M35 Zsofia Sulfate 05/22/2016 tablet .00 Davidson, [employer] two times daily. Z79.899 Synthroid - Hx Tablets 50mcg 90tabs 1 PO qd Petey, 09/11/2010 MD Kun Prozac - Hx Capsules 20mg 90caps 1 PO qd Petey, 09/11/2010 MD Kun Levoxyl - Hx Tablets 125mcg 90tabs 1/2 po qd Unknown 03/31/2013 Sertraline HCL - Hx Tablets 150mg 30tabs 1 po qd Unknown 05/27/2018 Fluocinonide - Hx Ointment 0.05% 60units bid topical Unknown 01/06/2013 daily Levothyroxine - Hx Tablets 75mcg 1 po qd Unknown Sodium 05/22/2016 Pantoprazole - Hx Tablets DR 40mg TK 1 T PO qd Unknown Sodium 11/19/2016 Pantoprazole - Hx Tablets DR 20mg 1 by mouth Unknown Sodium 05/27/2018 every day (currently not taking) Famotidine - Hx Tablets 20mg 1 by mouth Unknown 05/27/2018 every day as needed for heartburn Immunizations CPT Code Status Date Vaccine Reaction Lot # [id number] Given 04/30/2015 Influenza Virus Vaccine, No reaction noted [id number] Quadrivalent, Split, Preservative Free [id number] Given 07/31/2004 Td (History By Patient) Vital Signs Date Vital Result Comment 05/27/2018 11:17am Height 68.5 inches 5'8.50" Weight 248.38 lb Heart Rate 71 /min BP Systolic Sitting 118 mmHg BP Diastolic Sitting 74 mmHg Pain Level 0 O2 % BldC Oximetry 98 % BMI (Body Mass Index) 37.2 kg/m2 11/23/2017 11:09am Height 68.5 inches 5'8.50" Weight 246.12 lb Heart Rate 74 /min BP Systolic Sitting 122 mmHg BP Diastolic Sitting 80 mmHg Pain Level 1 O2 % BldC Oximetry 94 % BMI (Body Mass Index) 36.9 kg/m2 05/25/2017 11:26am Weight 247.00 lb Heart Rate 80 /min BP Systolic Sitting 114 mmHg BP Diastolic Sitting 81 mmHg Respiratory Rate 14 /min Pain Level 0 11/20/2016 11:28am Weight 246.00 lb Heart Rate 74 /min BP Systolic 110 mmHg BP Diastolic 68 mmHg O2 % BldC Oximetry 97 % 05/22/2016 11:21am Weight 256.00 lb Heart Rate 67 /min BP Systolic Sitting 108 mmHg BP Diastolic Sitting 70 mmHg Pain Level 5 lower back 11/15/2015 11:10am Weight 244.00 lb Heart Rate 81 /min BP Systolic Sitting 135 mmHg BP Diastolic Sitting 77 mmHg Body Temperature 97.1 F Pain Level 0 04/30/2015 11:25am Height 68.50 inches 5'8.50" Weight 245.00 lb Heart Rate 68 /min BP Systolic Sitting 100 mmHg BP Diastolic Sitting 60 mmHg Respiratory Rate 14 /min Body Temperature 97.8 F tympanic Pain Level 1 BMI (Body Mass Index) 36.7 kg/m2 10/26/2014 11:27am Height 68.50 inches 5'8.50" Weight 241.38 lb Heart Rate 76 /min BP Systolic Sitting 118 mmHg BP Diastolic Sitting 70 mmHg Respiratory Rate 14 /min Pain Level 0 BMI (Body Mass Index) 36.2 kg/m2 12/15/2013 2:10pm Height 68.50 inches 5'8.50" Weight 246.00 lb Heart Rate 60 /min BP Systolic Sitting 120 mmHg BP Diastolic Sitting 80 mmHg BMI (Body Mass Index) 36.9 kg/m2 09/15/2013 12:48pm Height 68.50 inches 5'8.50" Weight 249.50 lb Heart Rate 86 /min BP Systolic Sitting 118 mmHg BP Diastolic Sitting 74 mmHg BMI (Body Mass Index) 37.4 kg/m2 03/31/2013 12:54pm Height 68.50 inches 5'8.50" Weight 266.00 lb Heart Rate 76 /min BP Systolic Sitting 124 mmHg BP Diastolic Sitting 78 mmHg BMI (Body Mass Index) 39.9 kg/m2 01/06/2013 12:53pm Weight 261.00 lb Heart Rate 78 /min BP Systolic 114 mmHg BP Diastolic 70 mmHg 10/14/2012 1:14pm Height 68.5 inches 5'8.50" Heart Rate 78 /min BP Systolic Sitting 132 mmHg BP Diastolic Sitting 72 mmHg 07/15/2012 1:47pm Height 68.5 inches 5'8.50" Weight 266.00 lb Heart Rate 77 /min BP Systolic Sitting 128 mmHg BP Diastolic Sitting 77 mmHg BMI (Body Mass Index) 39.9 kg/m2 03/18/2012 10:18am Height 68.5 inches 5'8.50" Weight 260.00 lb Heart Rate 71 /min BP Systolic Sitting 122 mmHg BP Diastolic Sitting 68 mmHg BMI (Body Mass Index) 39.0 kg/m2 09/16/2011 10:30am Height 68.5 inches 5'8.50" Weight 264.00 lb Heart Rate 72 /min BP Systolic Sitting 122 mmHg BP Diastolic Sitting 74 mmHg BMI (Body Mass Index) 39.6 kg/m2 03/17/2011 11:04am Height 68.5 inches 5'8.50" Weight 256.00 lb Heart Rate 60 /min BP Systolic 118 mmHg BP Diastolic 70 mmHg BMI (Body Mass Index) 38.4 kg/m2 09/12/2010 11:23am Height 68.5 inches 5'8.50" Weight 252.00 lb Heart Rate 78 /min BP Systolic 120 mmHg BP Diastolic 74 mmHg BMI (Body Mass Index) 37.8 kg/m2 01/25/2007 2:34pm Height 68.5 inches 5'8.50" Weight 234.00 lb Heart Rate 72 /min BP Systolic Sitting 110 mmHg BP Diastolic Sitting 80 mmHg BMI (Body Mass Index) 35.1 kg/m2 Results Test Date Facility Test Result H/L Range Note CBC Auto Diff 05/19/2018 [facility] White Blood 5.0 10^3/uL N 3.5-10.[address] [place] [address] [phone] Red Blood Count 4.92 10^6/uL N 4.00-5.40 Hemoglobin 14.9 g/dL N 12.0-16.0 Hematocrit 44 % N 35-47 Mean Corpuscular Volume 90 fL N 80-97 Mean Corpuscular Hemoglobin 30 pg N 27-31 Mean Corpuscular HGB Conc 34 g/dL N 31-36 Red Cell Distribution Width 13 % N 10.5-15 Platelet Count 279 10^3/uL N 150-450 Mean Platelet Volume 8.1 fL N 7.4-10.4 Abs Neutrophils 3.5 10^3/uL N 1.5-7.7 Abs Lymphocytes 0.9 10^3/uL Low 1.0-4.8 Abs Monocytes 0.5 10^3/uL N 0-0.8 Abs Eosinophils 0.1 10^3/uL N 0-0.6 Abs Basophils 0 10^3/uL N 0-0.2 Abs Nucleated RBC 0 10^3/uL Granulocyte % 70.5 % Lymphocyte % 17.9 % Monocyte % 9.2 % Eosinophil % 1.8 % Basophil % 0.6 % Nucleated Red Blood Cells % 0.1 Comp Metabolic Panel 05/19/2018 [facility] Sodium 138 mmol/L N 135-[address] [place] [address] [phone] Potassium 4.7 mmol/L N 3.5-5.0 Chloride 105 mmol/L N 101-111 Co2 Carbon Dioxide 29 mmol/L N 22-32 Anion Gap 4 mmol/L N 2-11 Glucose 83 mg/dL N 70-100 Blood Urea Nitrogen 13 mg/dL N 6-24 Creatinine 0.86 mg/dL N 0.51-0.95 BUN/Creatinine Ratio 15.1 N 8-20 Calcium 9.5 mg/dL N 8.6-10.3 Total Protein 7.9 g/dL N 6.4-8.9 Albumin 4.2 g/dL N 3.2-5.2 Globulin 3.7 g/dL N 2-4 Albumin/Globulin Ratio 1.1 N 1-3 Total Bilirubin 0.70 mg/dL N 0.2-1.0 Alkaline Phosphatase 54 U/L N 34-104 Alt 9 U/L N 7-52 Ast 17 U/L N 13-39 Egfr Non- 66.9 >60 Egfr 80.9 >60 1 Laboratory test 05/19/2018 [facility] C Reactive 5.39 mg/L N < 8.[address] [place] [address] [phone] Erythrocyte Sed Rate 21 mm/Hr N 0-30 CBC Auto Diff 11/16/2017 [facility] White Blood 4.1 10^3/uL N 3.5-10.[address] [place] [address] [phone] Red Blood Count 4.84 10^6/uL N 4.00-5.40 Hemoglobin 14.8 g/dL N 12.0-16.0 Hematocrit 44 % N 35-47 Mean Corpuscular Volume 90 fL N 80-97 Mean Corpuscular Hemoglobin 31 pg N 27-31 Mean Corpuscular HGB Conc 34 g/dL N 31-36 Red Cell Distribution Width 13 % N 10.5-15 Platelet Count 258 10^3/uL N 150-450 Mean Platelet Volume 8.2 um3 N 7.4-10.4 Abs Neutrophils 2.6 10^3/uL N 1.5-7.7 Abs Lymphocytes 1.0 10^3/uL N 1.0-4.8 Abs Monocytes 0.4 10^3/uL N 0-0.8 Abs Eosinophils 0.1 10^3/uL N 0-0.6 Abs Basophils 0.1 10^3/uL N 0-0.2 Abs Nucleated RBC 0 10^3/uL Granulocyte % 63.9 % N 38-83 Lymphocyte % 23.2 % Low 25-47 Monocyte % 8.8 % High 0-7 Eosinophil % 2.9 % N 0-6 Basophil % 1.2 % N 0-2 Nucleated Red Blood Cells % 0.1 Laboratory test 11/16/2017 [facility] Erythrocyte Sed 10 mm/Hr N 0-[address] [place] [address] [phone] C Reactive Protein 1.57 mg/L N < 5.00 2 Comp Metabolic Panel 11/16/2017 [facility] Sodium 137 mmol/L Low 139-[address] [place] [address] [phone] Potassium 4.0 mmol/L N 3.5-5.0 Chloride 101 mmol/L N 101-111 Co2 Carbon Dioxide 30 mmol/L N 22-32 Anion Gap 6 mmol/L N 2-11 Glucose 83 mg/dL N 70-100 Blood Urea Nitrogen 12 mg/dL N 6-24 Creatinine 0.84 mg/dL N 0.51-0.95 BUN/Creatinine Ratio 14.3 N 8-20 Calcium 9.4 mg/dL N 8.6-10.3 Total Protein 7.7 g/dL N 6.4-8.9 Albumin 4.2 g/dL N 3.2-5.2 Globulin 3.5 g/dL N 2-4 Albumin/Globulin Ratio 1.2 N 1-3 Total Bilirubin 0.60 mg/dL N 0.2-1.0 Alkaline Phosphatase 54 U/L N 34-104 Alt 9 U/L N 7-52 Ast 15 U/L N 13-39 Egfr Non- 68.7 >60 Egfr 88.4 >60 3 Urinalysis Profile 11/16/2017 [facility] Urine Color Straw [address] [place] [address] [phone] Urine Appearance Clear Urine Specific Griffin 1.004 Low 1.010-1.030 Urine pH 6.0 N 5-9 Urine Urobilinogen Negative Negative Urine Ketones Negative Negative Urine Protein Negative Negative Urine Leukocytes 3+ Abnormal Negative Urine Blood Negative Negative Urine Nitrite Negative Negative Urine Bilirubin Negative Negative Urine Glucose Negative Negative Urine White Blood Cell 1+(6-10/hpf) Abnormal Absent Urine Red Blood Cell Trace(0-2/hpf) Absent Urine Bacteria Absent Absent Urine Squamous Epithelial Cell Present Abnormal Absent Urine Culture And 11/16/2017 [facility] Urine Culture SEE RESULT [address] [place] [address] [phone] CBC Auto Diff 05/19/2017 [facility] White Blood 5.3 10^3/uL N 3.5-[address] Count .8 [place] [address] [phone] Red Blood Count 4.86 10^6/uL N 4.0-5.4 Hemoglobin 14.6 g/dL N 12.0-16.0 Hematocrit 44 % N 35-47 Mean Corpuscular Volume 90 fL N 80-97 Mean Corpuscular Hemoglobin 30 pg N 27-31 Mean Corpuscular HGB Conc 34 g/dL N 31-36 Red Cell Distribution Width 13 % N 10.5-15 Platelet Count 330 10^3/uL N 150-450 Mean Platelet Volume 8 um3 N 7.4-10.4 Abs Neutrophils 3.3 10^3/uL N 1.5-7.7 Abs Lymphocytes 1.2 10^3/uL N 1.0-4.8 Abs Monocytes 0.6 10^3/uL N 0-0.8 Abs Eosinophils 0.1 10^3/uL N 0-0.6 Abs Basophils 0.1 10^3/uL N 0-0.2 Abs Nucleated RBC 0.01 10^3/uL Granulocyte % 62.7 % N 38-83 Lymphocyte % 23.1 % Low 25-47 Monocyte % 10.7 % High 1-9 Eosinophil % 2.1 % N 0-6 Basophil % 1.4 % N 0-2 Nucleated Red Blood Cells % 0.1 Comp Metabolic Panel 05/19/2017 [facility] Sodium 141 mmol/L N 133-[address] [place] [address] [phone] Potassium 4.2 mmol/L N 3.5-5.0 Chloride 102 mmol/L N 101-111 Co2 Carbon Dioxide 30 mmol/L N 22-32 Anion Gap 9 mmol/L N 2-11 Glucose 73 mg/dL N 70-100 Blood Urea Nitrogen 9 mg/dL N 6-24 Creatinine 0.79 mg/dL N 0.51-0.95 BUN/Creatinine Ratio 11.4 N 8-20 Calcium 9.5 mg/dL N 8.6-10.3 Total Protein 7.8 g/dL N 6.4-8.9 Albumin 4.2 g/dL N 3.2-5.2 Globulin 3.6 g/dL N 2-4 Albumin/Globulin Ratio 1.2 N 1-3 Total Bilirubin 0.50 mg/dL N 0.2-1.0 Alkaline Phosphatase 66 U/L N 34-104 Alt 8 U/L N 7-52 Ast 16 U/L N 13-39 Egfr Non- 74.0 >60 Egfr 95.2 >60 5 Laboratory test 05/19/2017 [facility] C Reactive 7.28 mg/L High < 5.00 [address] [place] [address] [phone] Erythrocyte Sed Rate 25 mm/Hr N 0-30 Urinalysis Profile 05/19/2017 [facility] Urine Color Straw [address] [place] [address] [phone] Urine Appearance Clear Urine Specific Griffin 1.004 Low 1.010-1.030 Urine pH 7.0 N 5-9 Urine Urobilinogen Negative Negative Urine Ketones Negative Negative Urine Protein Negative Negative Urine Leukocytes 3+ Abnormal Negative Urine Blood Negative Negative Urine Nitrite Negative Negative Urine Bilirubin Negative Negative Urine Glucose Negative Negative Urine White Blood Cell Trace(0-5/hpf) Absent Urine Red Blood Cell Trace(0-2/hpf) Absent Urine Bacteria 1+ Abnormal Absent Urine Squamous Epithelial Cell Present Abnormal Absent Urine Culture And 05/19/2017 [facility] Urine Culture SEE RESULT [address] [place] [address] [phone] CBC Auto Diff 11/13/2016 [facility] White Blood 4.1 10^3/uL N 3.5-[address] Count .8 [place] [address] [phone] Red Blood Count 4.88 10^6/uL N 4.0-5.4 Hemoglobin 14.6 g/dL N 12.0-16.0 Hematocrit 44 % N 35-47 Mean Corpuscular Volume 90 fL N 80-97 Mean Corpuscular Hemoglobin 30 pg N 27-31 Mean Corpuscular HGB Conc 33 g/dL N 31-36 Red Cell Distribution Width 13 % N 10.5-15 Platelet Count 260 10^3/uL N 150-450 Mean Platelet Volume 8 um3 N 7.4-10.4 Abs Neutrophils 2.7 10^3/uL N 1.5-7.7 Abs Lymphocytes 1.0 10^3/uL N 1.0-4.8 Abs Monocytes 0.4 10^3/uL N 0-0.8 Abs Eosinophils 0 10^3/uL N 0-0.6 Abs Basophils 0 10^3/uL N 0-0.2 Abs Nucleated RBC 0.01 10^3/uL N Granulocyte % 64.5 % N 38-83 Lymphocyte % 23.9 % Low 25-47 Monocyte % 10.0 % High 1-9 Eosinophil % 0.6 % N 0-6 Basophil % 1.0 % N 0-2 Nucleated Red Blood Cells % 0.2 N Comp Metabolic Panel 11/13/2016 [facility] Sodium 136 mmol/L N 133-[address] [place] [address] [phone] Potassium 3.9 mmol/L N 3.5-5.0 Chloride 103 mmol/L N 101-111 Co2 Carbon Dioxide 29 mmol/L N 22-32 Anion Gap 4 mmol/L N 2-11 Glucose 82 mg/dL N 70-100 Blood Urea Nitrogen 10 mg/dL N 6-24 Creatinine 0.71 mg/dL N 0.51-0.95 BUN/Creatinine Ratio 14.1 N 8-20 Calcium 9.3 mg/dL N 8.6-10.3 Total Protein 7.6 g/dL N 6.4-8.9 Albumin 4.3 g/dL N 3.2-5.2 Globulin 3.3 g/dL N 2-4 Albumin/Globulin Ratio 1.3 N 1-3 Total Bilirubin 0.60 mg/dL N 0.2-1.0 Alkaline Phosphatase 51 U/L N 34-104 Alt 8 U/L N 7-52 Ast 17 U/L N 13-39 Egfr Non- 83.7 N >60 Egfr 107.6 N >60 8 Laboratory test 11/13/2016 [facility] C Reactive 3.02 mg/L N < 5.00 [address] [place] [address] [phone] Urinalysis 11/13/2016 [facility] Urine Color Yellow N Profile [address] [place] [address] [phone] Urine Appearance Clear N Urine Specific Griffin 1.010 N 1.010-1.030 Urine pH 5.0 N 5-9 Urine Urobilinogen Negative N Negative Urine Ketones Negative N Negative Urine Protein Negative N Negative Urine Leukocytes 3+ Abnormal Negative Urine Blood Negative N Negative Urine Nitrite Negative N Negative Urine Bilirubin Negative N Negative Urine Glucose Negative N Negative Urine White Blood Cell 2+(11-20/hpf) Abnormal Absent Urine Red Blood Cell Absent N Absent Urine Bacteria Absent N Absent Urine Squamous Epithelial Cell Present Abnormal Absent Urine Culture And 11/13/2016 [facility] Urine Culture SEE RESULT [address] [place] [address] [phone] CBC Auto Diff 05/13/2016 [facility] White Blood 4.7 10^3/uL N 3.5-[address] Count 0.8 [place] [address] [phone] Red Blood Count 5.00 10^6/uL N 4.0-5.4 Hemoglobin 14.8 g/dL N 12.0-16.0 Hematocrit 44 % N 35-47 Mean Corpuscular Volume 89 fL N 80-97 Mean Corpuscular Hemoglobin 30 pg N 27-31 Mean Corpuscular HGB Conc 33 g/dL N 31-36 Red Cell Distribution Width 13 % N 10.5-15 Platelet Count 307 10^3/uL N 150-450 Mean Platelet Volume 8 um3 N 7.4-10.4 Abs Neutrophils 2.8 10^3/uL N 1.5-7.7 Abs Lymphocytes 1.3 10^3/uL N 1.0-4.8 Abs Monocytes 0.5 10^3/uL N 0-0.8 Abs Eosinophils 0 10^3/uL N 0-0.6 Abs Basophils 0.2 10^3/uL N 0-0.2 Abs Nucleated RBC 0 10^3/uL N Granulocyte % 59.2 % N 38-83 Lymphocyte % 27.3 % N 25-47 Monocyte % 10.1 % High 1-9 Eosinophil % 0.1 % N 0-6 Basophil % 3.3 % High 0-2 Nucleated Red Blood Cells % 0 N Comp Metabolic Panel 05/13/2016 [facility] Sodium 137 mmol/L N 133-[address] [place] [address] [phone] Potassium 4.3 mmol/L N 3.5-5.0 Chloride 102 mmol/L N 101-111 Co2 Carbon Dioxide 30 mmol/L N 22-32 Anion Gap 5 mmol/L N 2-11 Glucose 91 mg/dL N 70-100 Blood Urea Nitrogen 10 mg/dL N 6-24 Creatinine 0.84 mg/dL N 0.51-0.95 BUN/Creatinine Ratio 11.9 N 8-20 Calcium 9.7 mg/dL N 8.6-10.3 Total Protein 7.9 g/dL N 6.4-8.9 Albumin 4.3 g/dL N 3.2-5.2 Globulin 3.6 g/dL N 2-4 Albumin/Globulin Ratio 1.2 N 1-3 Total Bilirubin 0.50 mg/dL N 0.2-1.0 Alkaline Phosphatase 53 U/L N 34-104 Alt 8 U/L N 7-52 Ast 15 U/L N 13-39 Egfr Non- 69.2 N >60 Egfr 88.9 N >60 11 Laboratory test 05/13/2016 [facility] C Reactive 3.13 mg/L N < 5.00 [address] [place] [address] [phone] Erythrocyte Sed Rate 15 mm/Hr N 0-30 Urinalysis Profile 05/13/2016 [facility] Urine Color Straw N [address] [place] [address] [phone] Urine Appearance Clear N Urine Specific Griffin 1.002 Low 1.010-1.030 Urine pH 7.0 N 5-9 Urine Urobilinogen Negative N Negative Urine Ketones Negative N Negative Urine Protein Negative N Negative Urine Leukocytes 2+ Abnormal Negative Urine Blood Negative N Negative Urine Nitrite Negative N Negative Urine Bilirubin Negative N Negative Urine Glucose Negative N Negative Urine White Blood Cell Trace(0-5/hpf) N Absent Urine Red Blood Cell Trace(0-2/hpf) N Absent Urine Bacteria Absent N Absent Urine Squamous Epithelial Cell Present Abnormal Absent Urine Culture And 05/13/2016 [facility] Urine Culture SEE RESULT [address] [place] [address] [phone] Comp Metabolic 11/08/2015 [facility] Sodium 138 mmol/L N 133- [address] [place] [address] [phone] Potassium 4.0 mmol/L N 3.5-5.0 Chloride 105 mmol/L N 101-111 Co2 Carbon Dioxide 27 mmol/L N 22-32 Anion Gap 6 mmol/L N 2-11 Glucose 97 mg/dL N 70-100 Blood Urea Nitrogen 8 mg/dL N 6-24 Creatinine 0.87 mg/dL N 0.51-0.95 BUN/Creatinine Ratio 9.2 N 8-20 Calcium 9.4 mg/dL N 8.6-10.3 Total Protein 8.0 g/dL N 6.4-8.9 Albumin 4.4 g/dL N 3.2-5.2 Globulin 3.6 g/dL N 2-4 Albumin/Globulin Ratio 1.2 N 1-3 Total Bilirubin 0.70 mg/dL N 0.2-1.0 Alkaline Phosphatase 49 U/L N 34-104 Alt 8 U/L N 7-52 Ast 17 U/L N 13-39 Egfr Non- 66.4 N >60 Egfr 85.4 N >60 14 Laboratory test 11/08/2015 [facility] C Reactive 4.82 mg/L N < 5.00 [address] [place] [address] [phone] CBC Auto Diff 11/08/2015 [facility] White Blood 3.3 Low 3.5- 10.[address] Count 10^3/[place] [address] [phone] Red Blood Count 4.93 10^6/uL N 4.0-5.4 Hemoglobin 15.0 g/dL N 12.0-16.0 Hematocrit 45 % N 35-47 Mean Corpuscular Volume 91 fL N 80-97 Mean Corpuscular Hemoglobin 30 pg N 27-31 Mean Corpuscular HGB Conc 34 g/dL N 31-36 Red Cell Distribution Width 13 % N 10.5-15 Platelet Count 283 10^3/uL N 150-450 Mean Platelet Volume 9 um3 N 7.4-10.4 Abs Neutrophils 1.8 10^3/uL N 1.5-7.7 Abs Lymphocytes 1.1 10^3/uL N 1.0-4.8 Abs Monocytes 0.3 10^3/uL N 0-0.8 Abs Eosinophils 0 10^3/uL N 0-0.6 Abs Basophils 0 10^3/uL N 0-0.2 Abs Nucleated RBC 0 10^3/uL N Granulocyte % 53.2 % N 38-83 Lymphocyte % 33.9 % N 25-47 Monocyte % 10.3 % High 1-9 Eosinophil % 1.5 % N 0-6 Basophil % 1.1 % N 0-2 Nucleated Red Blood Cells % 0 N Laboratory test 11/08/2015 [facility] Erythrocyte Sed 18 mm/Hr N 0-30 [address] [place] [address] [phone] Comp Metabolic 04/23/2015 [facility] Sodium 137 mmol/L N 133- [address] [place] [address] [phone] Potassium 4.2 mmol/L N 3.5-5.0 Chloride 104 mmol/L N 101-111 Co2 Carbon Dioxide 28 mmol/L N 22-32 Anion Gap 5 mmol/L N 2-11 Glucose 88 mg/dL N 70-100 Blood Urea Nitrogen 13 mg/dL N 6-24 Creatinine 0.76 mg/dL N 0.51-0.95 BUN/Creatinine Ratio 17.1 N 8-20 Calcium 9.2 mg/dL N 8.6-10.3 Total Protein 7.8 g/dL N 6.4-8.9 Albumin 4.2 g/dL N 3.2-5.2 Globulin 3.6 g/dL N 2-4 Albumin/Globulin Ratio 1.2 N 1-3 Total Bilirubin 0.50 mg/dL N 0.2-1.0 Alkaline Phosphatase 50 U/L N 34-104 Alt 9 U/L N 7-52 Ast 15 U/L N 13-39 Egfr Non- 77.9 N >60 Egfr 100.2 N >60 17 Laboratory test 04/23/2015 [facility] C Reactive 5.38 mg/L High < 5.00 [address] [place] [address] [phone] Urinalysis 04/23/2015 [facility] Urine Color Straw N Profile [address] [place] [address] [phone] Urine Appearance Clear N Urine Specific Griffin 1.008 Low 1.010-1.030 Urine pH 8.0 N 5-9 Urine Urobilinogen Negative N Negative Urine Ketones Negative N Negative Urine Protein Negative N Negative Urine Leukocytes Negative N Negative Urine Blood Negative N Negative Urine Nitrite Negative N Negative Urine Bilirubin Negative N Negative Urine Glucose Negative N Negative CBC Auto 04/23/2015 [facility] White Blood 3.3 10^3/uL Low 4.8 -10.[address] [place] [address] [phone] Red Blood Count 4.84 10^6/uL N 4.0-5.4 Hemoglobin 14.7 g/dL N 12.0-16.0 Hematocrit 44 % N 35-47 Mean Corpuscular Volume 90 fL N 80-97 Mean Corpuscular Hemoglobin 30 pg N 27-31 Mean Corpuscular HGB Conc 34 g/dL N 31-36 Red Cell Distribution Width 13 % N 10.5-15 Platelet Count 255 10^3/uL N 150-450 Mean Platelet Volume 8 um3 N 7.4-10.4 Abs Neutrophils 2.0 10^3/uL N 1.5-7.7 Abs Lymphocytes 0.9 10^3/uL Low 1.0-4.8 Abs Monocytes 0.3 10^3/uL N 0-0.8 Abs Eosinophils 0 10^3/uL N 0-0.6 Abs Basophils 0 10^3/uL N 0-0.2 Abs Nucleated RBC 0 10^3/uL N Granulocyte % 61.8 % N 38-83 Lymphocyte % 28.1 % N 25-47 Monocyte % 9.6 % High 1-9 Eosinophil % 0.1 % N 0-6 Basophil % 0.4 % N 0-2 Nucleated Red Blood Cells % 0.1 N Laboratory test 04/23/2015 [facility] Erythrocyte Sed 19 mm/Hr N 0-[address] [place] [address] [phone] Ssa/SSB Abs Igg 04/23/2015 [facility] SS-A/Ro >8.0 U Abnormal [address] [place] [address] [phone] SS-B/La Antibody >8.0 U Abnormal 20 Comp Metabolic Panel 10/19/2014 [facility] Sodium 139 mmol/L N 133-[address] [place] [address] [phone] Potassium 3.5 mmol/L N 3.5-5.0 Chloride 106 mmol/L N 101-111 Co2 Carbon Dioxide 29 mmol/L N 22-32 Anion Gap 4 mmol/L N 2-11 Glucose 98 mg/dL N 70-100 Blood Urea Nitrogen 8 mg/dL N 6-24 Creatinine 0.73 mg/dL N 0.51-0.95 BUN/Creatinine Ratio 11.0 N 8-20 Calcium 8.9 mg/dL N 8.6-10.3 Total Protein 7.4 g/dL N 6.4-8.9 Albumin 4.2 g/dL N 3.2-5.2 Globulin 3.2 g/dL N 2-4 Albumin/Globulin Ratio 1.3 N 1-3 Total Bilirubin 0.60 mg/dL N 0.2-1.0 Alkaline Phosphatase 54 U/L N 34-104 Alt 10 U/L N 7-52 Ast 16 U/L N 13-39 Egfr Non- 81.6 N >60 Egfr 104.9 N >60 21 Laboratory test 10/19/2014 [facility] C Reactive 4.29 mg/L N < 5.[address] [place] [address] [phone] CBC Auto Diff 10/19/2014 [facility] White Blood 3.6 Low 4.8- 10.[address] Count 10^3/[place] [address] [phone] Red Blood Count 4.83 10^6/uL N 4.0-5.4 Hemoglobin 14.9 g/dL N 12.0-16.0 Hematocrit 43 % N 35-47 Mean Corpuscular Volume 90 fL N 80-97 Mean Corpuscular Hemoglobin 31 pg N 27-31 Mean Corpuscular HGB Conc 34 g/dL N 31-36 Red Cell Distribution Width 13 % N 10.5-15 Platelet Count 234 10^3/uL N 150-450 Mean Platelet Volume 8 um3 N 7.4-10.4 Abs Neutrophils 2.4 10^3/uL N 1.5-7.7 Abs Lymphocytes 0.8 10^3/uL Low 1.0-4.8 Abs Monocytes 0.4 10^3/uL N 0-0.8 Abs Eosinophils 0.1 10^3/uL N 0-0.6 Abs Basophils 0 10^3/uL N 0-0.2 Abs Nucleated RBC 0 10^3/uL N Granulocyte % 65.4 % N 38-83 Lymphocyte % 21.3 % Low 25-47 Monocyte % 10.7 % High 1-9 Eosinophil % 1.9 % N 0-6 Basophil % 0.7 % N 0-2 Nucleated Red Blood Cells % 0.1 N Laboratory test 10/19/2014 [facility] Erythrocyte Sed 12 mm/Hr N 0-[address] [place] [address] [phone] Laboratory test 12/08/2013 [facility] Erythrocyte Sed 13 mm/Hr N 0-[address] [place] [address] [phone] CBC Auto Diff 12/08/2013 [facility] White Blood 4.6 Low 4.8- 10.[address] Count 10^3/[place] [address] [phone] Red Blood Count 4.74 10^6/uL N 4.0-5.4 Hemoglobin 14.6 g/dL N 12.0-16.0 Hematocrit 42 % N 35-47 Mean Corpuscular Volume 89 fL N 80-97 Mean Corpuscular Hemoglobin 31 pg N 27-31 Mean Corpuscular HGB Conc 35 g/dL N 31-36 Red Cell Distribution Width 13 % N 10.5-15 Platelet Count 277 10^3/uL N 150-450 Mean Platelet Volume 8 um3 N 7.4-10.4 Abs Neutrophils 2.8 10^3/uL N 1.5-7.7 Abs Lymphocytes 1.2 10^3/uL N 1.0-4.8 Abs Monocytes 0.4 10^3/uL N 0-0.8 Abs Eosinophils 0.1 10^3/uL N 0-0.6 Abs Basophils 0 10^3/uL N 0-0.2 Abs Nucleated RBC 0 10^3/uL N Granulocyte % 61.4 % N 38-83 Lymphocyte % 26.9 % N 25-47 Monocyte % 9.7 % High 1-9 Eosinophil % 1.2 % N 0-6 Basophil % 0.8 % N 0-2 Nucleated Red Blood Cells % 0 N Laboratory test 12/08/2013 [facility] C Reactive 4.64 mg/L N < 5.[address] [place] [address] [phone] Comp Metabolic 12/08/2013 [facility] Sodium 138 mmol/L N 133- [address] [place] [address] [phone] Potassium 3.7 mmol/L N 3.7-5.6 Chloride 105 mmol/L N 101-111 Co2 Carbon Dioxide 28 mmol/L N 22-32 Anion Gap 5 mmol/L N 2-11 Glucose 91 mg/dL N 70-100 Blood Urea Nitrogen 8 mg/dL N 6-24 Creatinine 0.80 mg/dL N 0.51-0.95 BUN/Creatinine Ratio 10.0 N 8-20 Calcium 9.3 mg/dL N 8.6-10.3 Total Protein 7.7 g/dL N 6.4-8.9 Albumin 4.4 g/dL N 3.2-5.2 Globulin 3.3 g/dL N 2-4 Albumin/Globulin Ratio 1.3 N 1-3 Total Bilirubin 0.60 mg/dL N 0.2-1.0 Alkaline Phosphatase 51 U/L N 34-104 Alt 9 U/L N 7-52 Ast 17 U/L N 13-39 Egfr Non- 73.7 N >60 Egfr 94.7 N >60 24 Laboratory test 09/08/2013 [facility] C Reactive 5.07 mg/L High < 5.00 [address] [place] [address] [phone] Comp Metabolic 09/08/2013 [facility] Sodium 137 N 133-[address] mmol/[place] [address] [phone] Potassium 4.1 mmol/L N 3.7-5.6 Chloride 106 mmol/L N 101-111 Co2 Carbon Dioxide 27 mmol/L N 22-32 Anion Gap 4 mmol/L N 2-11 Glucose 96 mg/dL N 70-100 Blood Urea Nitrogen 12 mg/dL N 6-24 Creatinine 0.68 mg/dL N 0.51-0.95 BUN/Creatinine Ratio 17.6 N 8-20 Calcium 9.4 mg/dL N 8.6-10.3 Total Protein 7.9 g/dL N 6.4-8.9 Albumin 4.6 g/dL N 3.2-5.2 Globulin 3.3 g/dL N 2-4 Albumin/Globulin Ratio 1.4 N 1-3 Total Bilirubin 0.60 mg/dL N 0.2-1.0 Alkaline Phosphatase 52 U/L N 34-104 Alt 9 U/L N 7-52 Ast 16 U/L N 13-39 Egfr Non- 88.9 N >60 Egfr 114.3 N >60 26 CBC Auto 09/08/2013 [facility] White Blood 3.9 10^3/uL Low 4.8 -10.[address] [place] [address] [phone] Red Blood Count 5.15 10^6/uL N 4.0-5.4 Hemoglobin 15.7 g/dL N 12.0-16.0 Hematocrit 46 % N 35-47 Mean Corpuscular Volume 89 fL N 80-97 Mean Corpuscular Hemoglobin 31 pg N 27-31 Mean Corpuscular HGB Conc 35 g/dL N 31-36 Red Cell Distribution Width 14 % N 10.5-15 Platelet Count 286 10^3/uL N 150-450 Mean Platelet Volume 8 um3 N 7.4-10.4 Abs Neutrophils 2.6 10^3/uL N 1.5-7.7 Abs Lymphocytes 1.0 10^3/uL N 1.0-4.8 Abs Monocytes 0.3 10^3/uL N 0-0.8 Abs Eosinophils 0 10^3/uL N 0-0.6 Abs Basophils 0 10^3/uL N 0-0.2 Abs Nucleated RBC 0 10^3/uL N Granulocyte % 66.9 % N 38-83 Lymphocyte % 24.4 % Low 25-47 Monocyte % 7.3 % N 1-9 Eosinophil % 0.5 % N 0-6 Basophil % 0.9 % N 0-2 Nucleated Red Blood Cells % 0.1 N Laboratory test 09/08/2013 [facility] Erythrocyte Sed 15 mm/Hr N 0-[address] [place] [address] [phone] Laboratory test 08/08/2013 [facility] Esr Sedimentation <pending> finding [address] [place] [address] [phone] CRP C-Reactive Protein <pending> CBC Auto 06/20/2013 [facility] White Blood 4.3 10^3/uL Low 4.8 -10.[address] [place] [address] [phone] Red Blood Count 5.04 10^6/uL 4.0-5.4 Hemoglobin 15.4 g/dL 12.0-16.0 Hematocrit 45 % 35-47 Mean Corpuscular Volume 89 fL 80-97 Mean Corpuscular Hemoglobin 31 pg 27-31 Mean Corpuscular HGB Conc 34 g/dL 31-36 Red Cell Distribution Width 13 % 10.5-15 Platelet Count 290 10^3/uL 150-450 Mean Platelet Volume 8 um3 7.4-10.4 Abs Neutrophils 2.5 10^3/uL 1.5-7.7 Abs Lymphocytes 1.4 10^3/uL 1.0-4.8 Abs Monocytes 0.4 10^3/uL 0-0.8 Abs Eosinophils 0 10^3/uL 0-0.6 Abs Basophils 0 10^3/uL 0-0.2 Abs Nucleated RBC 0 10^3/uL Granulocyte % 57.6 % 38-83 Lymphocyte % 32.2 % 25-47 Monocyte % 8.9 % 1-9 Eosinophil % 0.5 % 0-6 Basophil % 0.8 % 0-2 Nucleated Red Blood Cells % 0.1 Laboratory test 06/20/2013 [facility] C Reactive < 0.5 mg/dL Less than finding [address] Protein 0.5 [place] [address] [phone] Erythrocyte Sed Rate 15 mm/Hr 0-30 Laine Screen Negative Negative 27 Basic Metabolic Panel 06/20/2013 [facility] Sodium 136 mmol/L 133-[address] [place] [address] [phone] Potassium 4.0 mmol/L 3.5-5.0 Chloride 104 mmol/L 101-111 Co2 Carbon Dioxide 27.0 mmol/L 22-32 Anion Gap 5.0 mmol/L 2-11 Glucose 91 mg/dL 70-100 Blood Urea Nitrogen 11 mg/dL 6-24 Creatinine 0.70 mg/dL 0.50-1.40 BUN/Creatinine Ratio 15.7 8-20 Calcium 9.0 mg/dL 8.1-9.9 Egfr Non- 86.2 >60 Egfr 110.9 >60 28 Laboratory 06/20/2013 [facility] Cielo Reflexed to Abnormal Negative test finding [address] ([place] [address] AB) Screen [phone] Cielo Hep-2 06/20/2013 [facility] Cielo Pattern Homogeneous Negative [address] [place] [address] [phone] Cielo Titer 1:640 <1:80 Cielo Reviewed By MD Lakhwinder Kinsey <SEE NOTE> 29 Laboratory test 03/24/2013 [facility] Laine Screen Negative Negative 30 finding [address] [place] [address] [phone] BMP Basic 03/24/2013 [facility] Sodium 137 mmol/L 133-145 Metabolic Panel [address] [place] [address] [phone] Potassium 4.4 mmol/L 3.5-5.0 Chloride 104 mmol/L 101-111 Co2 Carbon Dioxide 26.0 mmol/L 22-32 Anion Gap 7.0 mmol/L 2-11 Glucose 106 mg/dL High 70-100 Blood Urea Nitrogen 8 mg/dL 6-24 Creatinine 0.90 mg/dL 0.50-1.40 BUN/Creatinine Ratio 8.9 8-20 Calcium 9.3 mg/dL 8.1-9.9 Egfr Non- 64.5 >60 Egfr 83.0 >60 31 Laboratory test 03/24/2013 [facility] Erythrocyte Sed 18 mm/Hr 0-[address] [place] [address] [phone] C Reactive Protein < 0.5 mg/dL Less than 0.5 Cielo (Anti-Nuclear AB) Screen Reflexed to FA Abnormal Negative 32 CBC Auto 03/24/2013 [facility] White Blood 4.2 10^3/uL Low 4.8 -10.[address] [place] [address] [phone] Red Blood Count 5.00 10^6/uL 4.0-5.4 Hemoglobin 14.8 g/dL 12.0-16.0 Hematocrit 45 % 35-47 Mean Corpuscular Volume 90 fL 80-97 Mean Corpuscular Hemoglobin 30 pg 27-31 Mean Corpuscular HGB Conc 33 g/dL 31-36 Red Cell Distribution Width 13 % 10.5-15 Platelet Count 286 10^3/uL 150-450 Mean Platelet Volume 8 um3 7.4-10.4 Abs Neutrophils 2.6 10^3/uL 1.5-7.7 Abs Lymphocytes 1.2 10^3/uL 1.0-4.8 Abs Monocytes 0.4 10^3/uL 0-0.8 Abs Eosinophils 0 10^3/uL 0-0.6 Abs Basophils 0.1 10^3/uL 0-0.2 Abs Nucleated RBC 0 10^3/uL Granulocyte % 61.0 % 38-83 Lymphocyte % 27.5 % 25-47 Monocyte % 9.4 % High 1-9 Eosinophil % 0.8 % 0-6 Basophil % 1.3 % 0-2 Nucleated Red Blood Cells % 0.1 Cielo Hep-2 03/24/2013 [facility] Cielo Pattern Nucleolar Negative [address] [place] [address] [phone] Cielo Titer 1:640 <1:80 Cielo Reviewed By MD Hailey Michel 33 [place]aine Igg AB 12/31/2012 [facility] SS-A/Ro Antibody >8.0 U Abnormal [address] [place] [address] [phone] SS-B/La Antibody >8.0 U Abnormal 35 Sm ([place]) IgG Antibody <0.2 U 36 U1-nRNP Antibody 4.6 U Abnormal 37 Scl-70 (Scleroderma) Antibody <0.2 U 38 Lory-1 Antibody <0.2 U 39 Cielo Hep-2 12/31/2012 [facility] Cielo Pattern (SEE NOTE) Negative [address] [place] [address] [phone] Cielo Reviewed By MD Lakhwinder Geeovsk <SEE NOTE> 41 Laboratory test 12/31/2012 [facility] C Reactive < 0.5 mg/dL Less than finding [address] Protein 0.5 [place] [address] [phone] Cielo (Anti-Nuclear AB) Screen Reflexed to FA Abnormal Negative 42 Laine Screen Reflexed Abnormal Negative 43 Erythrocyte Sed Rate 13 mm/Hr 0-30 CBC Auto 12/31/2012 [facility] White Blood 4.2 10^3/uL Low 4.8 -10.[address] [place] [address] [phone] Red Blood Count 4.85 10^6/uL 4.0-5.4 Hemoglobin 15.0 g/dL 12.0-16.0 Hematocrit 44 % 35-47 Mean Corpuscular Volume 91 fL 80-97 Mean Corpuscular Hemoglobin 31 pg 27-31 Mean Corpuscular HGB Conc 34 g/dL 31-36 Red Cell Distribution Width 14 % 10.5-15 Platelet Count 283 10^3/uL 150-450 Mean Platelet Volume 9 um3 7.4-10.4 Abs Neutrophils 2.3 10^3/uL 1.5-7.7 Abs Lymphocytes 1.4 10^3/uL 1.0-4.8 Abs Monocytes 0.4 10^3/uL 0-0.8 Abs Eosinophils 0 10^3/uL 0-0.6 Abs Basophils 0 10^3/uL 0-0.2 Abs Nucleated RBC 0 10^3/uL Granulocyte % 54.5 % 38-83 Lymphocyte % 34.0 % 25-47 Monocyte % 9.6 % High 1-9 Eosinophil % 0.9 % 0-6 Basophil % 1.0 % 0-2 Nucleated Red Blood Cells % 0 Cielo Hep-2 10/07/2012 [facility] Cielo Pattern Homogeneous Negative [address] [place] [address] [phone] Cielo Titer 1:320 <1:80 Cielo Reviewed By MD Lakhwinder Kinsey <SEE NOTE> 44 Basic Metabolic Panel 10/07/2012 [facility] Sodium 137 mmol/L 133-[address] [place] [address] [phone] Potassium 3.7 mmol/L 3.5-5.0 Chloride 102 mmol/L 101-111 Co2 Carbon Dioxide 27.0 mmol/L 22-32 Anion Gap 8.0 mmol/L 2-11 Glucose 91 mg/dL 70-100 Blood Urea Nitrogen 12 mg/dL 6-24 Creatinine 0.90 mg/dL 0.50-1.40 BUN/Creatinine Ratio 13.3 8-20 Calcium 9.1 mg/dL 8.1-9.9 Egfr Non- 64.5 >60 Egfr 83.0 >60 45 Laboratory test 10/07/2012 [facility] C Reactive 0.5 mg/dL Less than finding [address] Protein 0.5 [place] [address] [phone] Laine Screen Negative Negative 46 Cielo (Anti-Nuclear AB) Screen Reflexed to FA Abnormal Negative 47 Erythrocyte Sed Rate 16 mm/Hr 0-30 CBC With 10/07/2012 [facility] White Blood 4.5 10^3/uL Low 4.8 -10.8 Manual Diff [address] [place] [address] [phone] Red Blood Count 4.94 10^6/uL 4.0-5.4 Hemoglobin 14.7 g/dL 12.0-16.0 Hematocrit 44 % 35-47 Mean Corpuscular Volume 89 fL 80-97 Mean Corpuscular Hemoglobin 30 pg 27-31 Mean Corpuscular HGB Conc 34 g/dL 31-36 Red Cell Distribution Width 13 % 10.5-15 Platelet Count 272 10^3/uL 150-450 Mean Platelet Volume 8 um3 7.4-10.4 Abs Neutrophils 2.5 10^3/uL 1.5-7.7 Abs Lymphocytes 1.4 10^3/uL 1.0-4.8 Abs Monocytes 0.5 10^3/uL 0-0.8 Abs Eosinophils 0 10^3/uL 0-0.6 Abs Basophils 0.1 10^3/uL 0-0.2 Abs Nucleated RBC 0 10^3/uL Neutrophil % 54 % 38-83 Lymphocytes % 34 % 25-47 Monocytes % 10 % 0-13 Basophil % 1 % 0-2 Reactive Lymph % 1 % 0-6 RBC Morphology Normal Normal Cielo Hep-2 07/07/2012 [facility] Cielo Pattern Homogeneous Negative [address] [place] [address] [phone] Cielo Titer 1:640 <1:80 Cielo Reviewed By MD Lakhwinder Kinsey <SEE NOTE> 48 [place]aine Igg AB 07/07/2012 [facility] SS-A/Ro Antibody >8.0 U Abnormal [address] [place] [address] [phone] SS-B/La Antibody >8.0 U Abnormal 50 Sm ([place]) IgG Antibody <0.2 U 51 U1-nRNP Antibody 4.8 U Abnormal 52 Scl-70 (Scleroderma) Antibody <0.2 U 53 Lory-1 Antibody <0.2 U 54 Laboratory test 07/07/2012 [facility] Erythrocyte Sed 20 mm/Hr 0-[address] [place] [address] [phone] C Reactive Protein 0.6 mg/dL High Less than 0.5 Laine Screen Reflexed Abnormal Negative 55 Cielo (Anti-Nuclear AB) Screen Reflexed to FA Abnormal Negative 56 Rheumatoid Factor <15 IU/mL <15 57 Cyclic Citrullinated Pept IgG <15.6 U 58 CBC With 07/07/2012 [facility] White Blood 5.5 10^3/uL 4.8- 10.8 Manual Diff [address] [place] [address] [phone] Red Blood Count 4.77 10^6/uL 4.0-5.4 Hemoglobin 14.4 g/dL 12.0-16.0 Hematocrit 43 % 35-47 Mean Corpuscular Volume 90 fL 80-97 Mean Corpuscular Hemoglobin 30 pg 27-31 Mean Corpuscular HGB Conc 34 g/dL 31-36 Red Cell Distribution Width 14 % 10.5-15 Platelet Count 287 10^3/uL 150-450 Mean Platelet Volume 8 um3 7.4-10.4 Abs Neutrophils 3.8 10^3/uL 1.5-7.7 Abs Lymphocytes 1.2 10^3/uL 1.0-4.8 Abs Monocytes 0.4 10^3/uL 0-0.8 Abs Eosinophils 0 10^3/uL 0-0.6 Abs Basophils 0.1 10^3/uL 0-0.2 Abs Nucleated RBC 0 10^3/uL Neutrophil % 74 % 38-83 Lymphocytes % 20 % Low 25-47 Monocytes % 6 % 0-13 RBC Morphology Normal Normal 1 Because ethnic data is not always readily available, this report includes an eGFR for both -Americans and non- Americans. The National Kidney Disease Education Program (NKDEP) does not endorse the use of the MDRD equation for patients that are not between the ages of 18 and 70, are , have extremes of body size, muscle mass, or nutritional status, or are non- or non-. According to the National Kidney Foundation, irrespective of diagnosis, the stage of the disease is based on the level of kidney function: Stage Description GFR(mL/min/1.73 m(2)) 1 Kidney damage with normal or decreased GFR 90 2 Kidney damage with mild decrease in GFR 60-89 3 Moderate decrease in GFR 30-59 4 Severe decrease in GFR 15-29 5 Kidney failure <15 (or dialysis) 2 Acute inflammation: >10.00 3 Because ethnic data is not always readily available, this report includes an eGFR for both -Americans and non- Americans. The National Kidney Disease Education Program (NKDEP) does not endorse the use of the MDRD equation for patients that are not between the ages of 18 and 70, are , have extremes of body size, muscle mass, or nutritional status, or are non- or non-. According to the National Kidney Foundation, irrespective of diagnosis, the stage of the disease is based on the level of kidney function: Stage Description GFR(mL/min/1.73 m(2)) 1 Kidney damage with normal or decreased GFR 90 2 Kidney damage with mild decrease in GFR 60-89 3 Moderate decrease in GFR 30-59 4 Severe decrease in GFR 15-29 5 Kidney failure <15 (or dialysis) 4 SEE RESULT BELOW Name: EDIE HANDY : [address]: Adrian Cedeño NP Acct: [id number] Unit: [id number] AGE: 62 Location: [facility] Re11/16/17 SEX: F Status: REG REF SPEC: [id number] KERI: 11/16/17-[address]: Adrian Cedeño NP REQ: [id number] RECD: 11/16/17 STATUS: FRANNY MOLINA DR: Tamara Abel MD _ SOURCE: URINE SPDESC: ORDERED: Urine Culture Procedure Result Reported Site Urine Culture Final 11/17/17- 1616 ML No Growth (<1,000 CFU/mL) * ML - Main Lab . END OF REPORT DEPARTMENT OF PATHOLOGY, [address] [place] [id number] Lakhwinder Hart M.D. Director [facility] # [id number] 5 Because ethnic data is not always readily available, this report includes an eGFR for both -Americans and non- Americans. The National Kidney Disease Education Program (NKDEP) does not endorse the use of the MDRD equation for patients that are not between the ages of 18 and 70, are , have extremes of body size, muscle mass, or nutritional status, or are non- or non-. According to the National Kidney Foundation, irrespective of diagnosis, the stage of the disease is based on the level of kidney function: Stage Description GFR(mL/min/1.73 m(2)) 1 Kidney damage with normal or decreased GFR 90 2 Kidney damage with mild decrease in GFR 60-89 3 Moderate decrease in GFR 30-59 4 Severe decrease in GFR 15-29 5 Kidney failure <15 (or dialysis) 6 Acute inflammation: >10.00 7 SEE RESULT BELOW Name: EDIE HANDY : [address]: Adrian Cedeño NP Acct: [id number] Unit: [id number] AGE: 61 Location: [facility] Re05/19/17 SEX: F Status: REG REF SPEC: [id number] KERI: 05/19/17-[address]: Adrian Cedeño NP REQ: [id number] RECD: 05/19/17 STATUS: COMP _ SOURCE: URINE [facility]: ORDERED: Urine Culture Procedure Result Reported Site Urine Culture Final 05/20/17- 1432 ML No growth of clinically significant organisms * ML - MAIN LAB ([facility]) . END OF REPORT * ML=Testing performed at Main Lab DEPARTMENT OF PATHOLOGY, [address] [place] [address] Lakhwinder Hart M.D. Director [facility] # [id number] 8 Because ethnic data is not always readily available, this report includes an eGFR for both -Americans and non- Americans. The National Kidney Disease Education Program (NKDEP) does not endorse the use of the MDRD equation for patients that are not between the ages of 18 and 70, are , have extremes of body size, muscle mass, or nutritional status, or are non- or non-. According to the National Kidney Foundation, irrespective of diagnosis, the stage of the disease is based on the level of kidney function: Stage Description GFR(mL/min/1.73 m(2)) 1 Kidney damage with normal or decreased GFR 90 2 Kidney damage with mild decrease in GFR 60-89 3 Moderate decrease in GFR 30-59 4 Severe decrease in GFR 15-29 5 Kidney failure <15 (or dialysis) 9 Acute inflammation: >10.00 10 SEE RESULT BELOW Name: HANDYEDIE : [address]: Adrian Cedeño NP Acct: [id number] Unit: [id number] AGE: 61 Location: [facility] Re11/13/16 SEX: F Status: REG REF SPEC: [id number] KERI: 11/13/[address] [facility] [address]: Adrian Cedeño NP REQ: [id number] RECD: 11/13/16 STATUS: COMP _ SOURCE: URINE SPDESC: ORDERED: Urine Culture Procedure Result Reported Site Urine Culture Final 11/14/16- 1218 ML No growth of clinically significant organisms * ML - MAIN LAB ([facility]) . END OF REPORT * ML=Testing performed at Main Lab DEPARTMENT OF PATHOLOGY, [address] [place] [address] Lakhwinder Hart M.D. Director [facility] # [id number] 11 Because ethnic data is not always readily available, this report includes an eGFR for both -Americans and non- Americans. The National Kidney Disease Education Program (NKDEP) does not endorse the use of the MDRD equation for patients that are not between the ages of 18 and 70, are , have extremes of body size, muscle mass, or nutritional status, or are non- or non-. According to the National Kidney Foundation, irrespective of diagnosis, the stage of the disease is based on the level of kidney function: Stage Description GFR(mL/min/1.73 m(2)) 1 Kidney damage with normal or decreased GFR 90 2 Kidney damage with mild decrease in GFR 60-89 3 Moderate decrease in GFR 30-59 4 Severe decrease in GFR 15-29 5 Kidney failure <15 (or dialysis) 12 Acute inflammation: >10.00 13 SEE RESULT BELOW Name: EDIE HANDY : [address]: Adrian Cedeño NP Acct: [id number] Unit: [id number] AGE: 60 Location: [facility] Re05/13/16 SEX: F Status: REG REF SPEC: [id number] KERI: 05/13/[address]: Adrian Cdeeño NP REQ: [id number] RECD: 05/13/16 STATUS: COMP _ SOURCE: URINE SPDESC: ORDERED: Urine Culture Procedure Result Reported Site Urine Culture Final 05/14/16- 1630 ML No Growth (<1,000 CFU/mL) * ML - MAIN LAB (PSYCHIATRIC1) . END OF REPORT * ML=Testing performed at Main Lab DEPARTMENT OF PATHOLOGY, [address] [place] [address] Lakhwinder Hart M.D. Director [facility] # [id number] 14 Because ethnic data is not always readily available, this report includes an eGFR for both -Americans and non- Americans. The National Kidney Disease Education Program (NKDEP) does not endorse the use of the MDRD equation for patients that are not between the ages of 18 and 70, are , have extremes of body size, muscle mass, or nutritional status, or are non- or non-. According to the National Kidney Foundation, irrespective of diagnosis, the stage of the disease is based on the level of kidney function: Stage Description GFR(mL/min/1.73 m(2)) 1 Kidney damage with normal or decreased GFR 90 2 Kidney damage with mild decrease in GFR 60-89 3 Moderate decrease in GFR 30-59 4 Severe decrease in GFR 15-29 5 Kidney failure <15 (or dialysis) 15 Acute inflammation: >10.00 16 PRN VALID 10/30/2015 05/01/2016 17 Because ethnic data is not always readily available, this report includes an eGFR for both -Americans and non- Americans. The National Kidney Disease Education Program (NKDEP) does not endorse the use of the MDRD equation for patients that are not between the ages of 18 and 70, are , have extremes of body size, muscle mass, or nutritional status, or are non- or non-. According to the National Kidney Foundation, irrespective of diagnosis, the stage of the disease is based on the level of kidney function: Stage Description GFR(mL/min/1.73 m(2)) 1 Kidney damage with normal or decreased GFR 90 2 Kidney damage with mild decrease in GFR 60-89 3 Moderate decrease in GFR 30-59 4 Severe decrease in GFR 15-29 5 Kidney failure <15 (or dialysis) 18 Acute inflammation: >10.00 19 Interpretation: Positive (>=1.0) REFERENCE VALUE <1.0 (Negative) 20 Interpretation: Positive (>=1.0) REFERENCE VALUE <1.0 (Negative) Test Performed by: [place] [address] Preschool Adviser: Romel Higginbotham II, M.D., Ph.D. 21 Because ethnic data is not always readily available, this report includes an eGFR for both -Americans and non- Americans. The National Kidney Disease Education Program (NKDEP) does not endorse the use of the MDRD equation for patients that are not between the ages of 18 and 70, are , have extremes of body size, muscle mass, or nutritional status, or are non- or non-. According to the National Kidney Foundation, irrespective of diagnosis, the stage of the disease is based on the level of kidney function: Stage Description GFR(mL/min/1.73 m(2)) 1 Kidney damage with normal or decreased GFR 90 2 Kidney damage with mild decrease in GFR 60-89 3 Moderate decrease in GFR 30-59 4 Severe decrease in GFR 15-29 5 Kidney failure <15 (or dialysis) 22 Acute inflammation: >10.00 23 Acute inflammation: >10.00 24 Because ethnic data is not always readily available, this report includes an eGFR for both -Americans and non- Americans. The National Kidney Disease Education Program (NKDEP) does not endorse the use of the MDRD equation for patients that are not between the ages of 18 and 70, are , have extremes of body size, muscle mass, or nutritional status, or are non- or non-. According to the National Kidney Foundation, irrespective of diagnosis, the stage of the disease is based on the level of kidney function: Stage Description GFR(mL/min/1.73 m(2)) 1 Kidney damage with normal or decreased GFR 90 2 Kidney damage with mild decrease in GFR 60-89 3 Moderate decrease in GFR 30-59 4 Severe decrease in GFR 15-29 5 Kidney failure <15 (or dialysis) 25 Acute inflammation: >10.00 26 Because ethnic data is not always readily available, this report includes an eGFR for both -Americans and non- Americans. The National Kidney Disease Education Program (NKDEP) does not endorse the use of the MDRD equation for patients that are not between the ages of 18 and 70, are , have extremes of body size, muscle mass, or nutritional status, or are non- or non-. According to the National Kidney Foundation, irrespective of diagnosis, the stage of the disease is based on the level of kidney function: Stage Description GFR(mL/min/1.73 m(2)) 1 Kidney damage with normal or decreased GFR 90 2 Kidney damage with mild decrease in GFR 60-89 3 Moderate decrease in GFR 30-59 4 Severe decrease in GFR 15-29 5 Kidney failure <15 (or dialysis) 27 The above LAINE screen is designed for the detection of antibodies to extractable nuclear antigen (LAINE) in human serum. It is a combination test for the detection of antibodies to COLLATERAL CLERK, Sm, SS-A (Ro), and SS-B (La) nuclear antigens. 28 Because ethnic data is not always readily available, this report includes an eGFR for both -Americans and non- Americans. The National Kidney Disease Education Program (NKDEP) does not endorse the use of the MDRD equation for patients that are not between the ages of 18 and 70, are , have extremes of body size, muscle mass, or nutritional status, or are non- or non-. According to the National Kidney Foundation, irrespective of diagnosis, the stage of the disease is based on the level of kidney function: Stage Description GFR(mL/min/1.73 m(2)) 1 Kidney damage with normal or decreased GFR 90 2 Kidney damage with mild decrease in GFR 60-89 3 Moderate decrease in GFR 30-59 4 Severe decrease in GFR 15-29 5 Kidney failure <15 (or dialysis) 29 Lakhwinder Hart 30 The above LAINE screen is designed for the detection of antibodies to extractable nuclear antigen (LAINE) in human serum. It is a combination test for the detection of antibodies to COLLATERAL CLERK, Sm, SS-A (Ro), and SS-B (La) nuclear antigens. 31 Because ethnic data is not always readily available, this report includes an eGFR for both -Americans and non- Americans. The National Kidney Disease Education Program (NKDEP) does not endorse the use of the MDRD equation for patients that are not between the ages of 18 and 70, are , have extremes of body size, muscle mass, or nutritional status, or are non- or non-. According to the National Kidney Foundation, irrespective of diagnosis, the stage of the disease is based on the level of kidney function: Stage Description GFR(mL/min/1.73 m(2)) 1 Kidney damage with normal or decreased GFR 90 2 Kidney damage with mild decrease in GFR 60-89 3 Moderate decrease in GFR 30-59 4 Severe decrease in GFR 15-29 5 Kidney failure <15 (or dialysis) 32 @Sample frozen by [id number] at 1424 on 03/24/13. @03/25/13 1216: CIELO Hep-2 added. RFLXG=DAMARI. 33 Hailey Michel 34 Interpretation: Positive (>=1.0) -- REFERENCE VALUE -- <1.0 (Negative) 35 Interpretation: Positive (>=1.0) -- REFERENCE VALUE -- <1.0 (Negative) 36 -- REFERENCE VALUE -- <1.0 (Negative) 37 Interpretation: Positive (>=1.0) -- REFERENCE VALUE -- <1.0 (Negative) 38 -- REFERENCE VALUE -- <1.0 (Negative) 39 -- REFERENCE VALUE -- <1.0 (Negative) Test Performed by: [address] [address] Preschool Adviser: Cal Cates III, M.D. 40 1:160 HOMOGENEOUS 1:640 NUCLEOLAR 41 Lakhwinder Hart 42 @Sample frozen by [id number] at 1254 on 12/31/12. @01/04/13 1104: CIELO Hep-2 added. RFLXG=DAMARI. 43 Positive Reflexed for additional Testing. Specimen has been sent to reference lab for expanded evaluation (to include seperate antibogy titers for COLLATERAL CLERK, Sm, SS-A (Ro), SS-B (La), SCL-70, and Lory-1). The above LAINE screen is designed for the detection of antibodies to extractable nuclear antigen (LAINE) in human serum. It is a combination test for the detection of antibodies to COLLATERAL CLERK, Sm, SS-A (Ro), and SS-B (La) nuclear antigens. 44 Lakhwinder Hart 45 Because ethnic data is not always readily available, this report includes an eGFR for both -Americans and non- Americans. The National Kidney Disease Education Program (NKDEP) does not endorse the use of the MDRD equation for patients that are not between the ages of 18 and 70, are , have extremes of body size, muscle mass, or nutritional status, or are non- or non-. According to the National Kidney Foundation, irrespective of diagnosis, the stage of the disease is based on the level of kidney function: Stage Description GFR(mL/min/1.73 m(2)) 1 Kidney damage with normal or decreased GFR 90 2 Kidney damage with mild decrease in GFR 60-89 3 Moderate decrease in GFR 30-59 4 Severe decrease in GFR 15-29 5 Kidney failure <15 (or dialysis) 46 The above LAINE screen is designed for the detection of antibodies to extractable nuclear antigen (LAINE) in human serum. It is a combination test for the detection of antibodies to COLLATERAL CLERK, Sm, SS-A (Ro), and SS-B (La) nuclear antigens. 47 @Sample frozen by [id number] at 1147 on 10/07/12. @10/08/12 1141: CIELO Hep-2 added. RFLXG=DAMARI. 48 Lakhwinder Hart 49 Interpretation: Positive (>=1.0) -- REFERENCE VALUE -- <1.0 (Negative) 50 Interpretation: Positive (>=1.0) -- REFERENCE VALUE -- <1.0 (Negative) 51 -- REFERENCE VALUE -- <1.0 (Negative) 52 Interpretation: Positive (>=1.0) -- REFERENCE VALUE -- <1.0 (Negative) 53 -- REFERENCE VALUE -- <1.0 (Negative) 54 -- REFERENCE VALUE -- <1.0 (Negative) Test Performed by: [place] [address] Preschool Adviser: Cal Cates III, M.D. 55 Positive Reflexed for additional Testing. Specimen has been sent to reference lab for expanded evaluation (to include seperate antibogy titers for COLLATERAL CLERK, Sm, SS-A (Ro), SS-B (La), SCL-70, and Lory-1). The above LAINE screen is designed for the detection of antibodies to extractable nuclear antigen (LAINE) in human serum. It is a combination test for the detection of antibodies to COLLATERAL CLERK, Sm, SS-A (Ro), and SS-B (La) nuclear antigens. 56 @Sample frozen by [id number] at 1334 on 07/07/12. @07/09/12 1341: CIELO Hep-2 added. RFLXG=DAMARI. 57 Test Performed by: [address] [address] Preschool Adviser: Cal Cates III, M.D. 58 -- REFERENCE VALUE -- <20.0 (Negative) Test Performed by: [address] [address] Preschool Adviser: Cal Cates III, M.D. 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 Associate[place] K21.9 Gastro-esophageal reflux disease without esophagitis 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, unspecified Z79.899 Other fci (current) drug therapy L40.9 Psoriasis, unspecified Office Visit 11/20/2016 Rheumatology Zsofia M35.00 Sicca syndrome, 11:30a Services Of WILLEI CedeñoP unspecified Shanice[place] M54.5 Low back pain M25.569 Pain in unspecified knee Z79.899 Other fci (current) drug therapy Office Visit 05/22/2016 Rheumatology Zsofia M35.00 Sicca syndrome, 11:30a Services Of ZEN Cedeño unspecified [place] M54.5 Low back pain 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 K21.9 Gastro-esophageal reflux disease without esophagitis Office Visit 11/15/2015 Rheumatology Zsofia M35.00 Sicca syndrome, 11:30a [facility] [place] [employer]IC unspecified [place] 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 Office Visit 04/30/2015 11:30a Rheumatology Zsofia M35.00 Sicca syndrome, Services Of [facility] WILLIE CedeñoP unspecified Z23 Encounter for immunization R21 Rash and other nonspecific skin eruption M25.561 Pain in right knee 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 Office Visit 10/26/2014 11:30a Rheumatology Eleanor Lewis.2 Sicca Syndrome Services [facility] 354.0 Carpal Tunnel Syndrome V58.69 Medications Correction (Current) Use Encounter Office Visit 12/15/2013 2:00p Rheumatology Eleanor Lewis.2 [facility]ca [facility] 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 354.0 Carpal Tunnel Syndrome V58.69 Medications Correction (Current) Use Encounter 782.1 Rash & Other Nonspec Skin Eruption Office Visit 10/14/2012 1:20p Rheumatology Abiodun Singleton, 710.2 Sicca Syndrome [facility] Sammie.D. 354.0 Carpal Tunnel Syndrome V58.69 Medications [employer]icians [employer] Trades Workers (Current) Use Encounter Office Visit 07/15/2012 1:40p Rheumatology Abiodun Singleton, 710.2 Sicca Syndrome [facility] Sammie.D. 354.0 Carpal Tunnel Syndrome V58.69 Medications Technicians [employer] Trades Workers (Current) Use Encounter Office Visit 03/18/2012 10:20a Rheumatology Abiodun Singleton 710.2 Sicca Syndrome [facility] Sammie.D. 354.0 Carpal Tunnel Syndrome V58.69 Medications Correction (Current) Use Encounter Office Visit 09/16/2011 10:40a Rheumatology Abiodun Singleton, 710.2 Sicca Syndrome [facility] Sammie.D. 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 782.1 Rash & Other Nonspec Skin Eruption 556.9 Ulcerative Colitis Unspec V58.69 Medications Correction (Current) Use Encounter Office Visit 09/12/2010 11:40a Rheumatology Abiodun Singleton, 710.2 Sicca Syndrome [facility] Sammie.D. V58.69 Medications Correction (Current) Use Encounter Office [facility]/25[facility]2007 [facility] 354.0 Carpal Tunnel AT Kathleen Beavers M.D. Syndrome [place] 244.9 Hypothyroidism Other Unspec 311 Depressive Disorder Not Elsewhere Spec 272.0 Hypercholesterolemia Pure Plan of Treatment Future Appointment(s):11/22/2018 11:30 am - ZEN Lewis at Rheumatology [facility]/20/2018 - FELISHA Lewis35.00 Sicca syndrome, unspecifiedComments:It appears that your autoimmune condition is stableThe goal treatment of your condition is to managesymptoms and prevent complications. Artificial tears are the first-line therapy for dry eyes. Please continue with regular use of them.Dry mouth:People with dry mouth are at increased risk for dental cavities. Regular cleaning and evaluation by a dentist is recommended. Special toothpastes for patients with dry mouth are available. These lack the detergents that may irritate a dry mouth. Toothbrushes that clean well between the teeth (including electric toothbrushes) may also help to keep the teethclean.Toothpaste with fluoride may help to prevent cavities. A fluoride treatment may also be helpful. You may use salivary substitutes for improving lubrication and hydration of oral tissues.If they prove insufficient, gels ( fluoride gels), saliva-stimulating lozenges or chewing gums, mouthwashes, prescription-strength toothpastes, and oral rinses may also be used. sipping water and other sugar-free liquids will provides temporary comfort.Follow up:6 month labs prior to next [id number] Rash and other nonspecific skin eruptionComments:Monitor the rash if gets worse you may use the triamcinolone cream.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Comments:We discussed side effects of hydroxychloroquine with particular emphasis on the ophthalmologic side effects and the need for yearly eye exams.E66.9 Obesity, unspecifiedComments:We discussed to try to eat and be active during the day and sleep and do not eat at night.Increase activity level, possibly including cardio workout like vigorous walking.Exercise: Moderate aerobic exercise sustaining moderate shortness of breath (able to converse) recommended for 30 min daily at least 5 days/week. Diet:Avoid eating or snacking to satiety.Avoid concentrated sweets, dietary fats, added sugars, and added saltThe "Mediterranean diet" is recommended: this diet in high in vegetables, fruits, nuts and grains (important sources of dietary fats), low to moderate amount of white meat, fish and dairy, minimum amount of dark meat.Please refer to [email or web address] Cutaneous abscess, unspecifiedComments:Give me call if does not resolve in 10 daysYou may want to see Dr. Schultz for gynecology.[facility] Encounter for screening for malignant neoplasm of cervixReferral:Rylee Schultz MD, OB/ Improvement Advisor/Phys/Osteo
[2018-06-24 07:43] VITALS: BP 127/78
--- NOTE | 2018-06-24 08:56 | UC ---
Skin Complaint HPI - HPI Summary HPI Summary: cystic mass lower tailbone area x 1 month + swelling, tender , the area has been draining for the past 2 days no fever, no chills, - History of Current Complaint Chief Complaint: UCGI Time Seen by Provider: 06/24/18 07:34 Stated Complaint: PERSONAL Hx Obtained From: Patient Onset/Duration: Gradual Onset, Lasting Weeks - 4, Still Present, Worse Since - past 2 days Timing: Constant Onset Severity: Mild Current Severity: Moderate Pain Intensity: 0 Pain Scale Used: 0-10 Numeric Location: Other - tailbone area just above the anus Character: Swelling, Pruritus, Pain, Redness, Raised, Painful Aggravating Factor(s): Touch Alleviating Factor(s): Nothing Associated Signs & Symptoms: Positive: Tenderness. Negative: Nausea, Vomiting - Allergy/Home Medications Allergies/Adverse Reactions: Allergies Allergy/AdvReac Type Severity Reaction Status Date / Time latex Allergy Swelling Verified 06/24/18 07:32 Of Face,Lips,& Throat PMH/Surg Hx/FS Hx/Imm Hx - Additional Past Medical History Additional PMH: sjogrand's syndrome macular pucker, left rib fx 2018 Endocrine History: Thyroid Disease, Hypothyroidism Cancer History: Breast Cancer - Surgical History Surgical History: Yes Surgery Procedure, Year, and Place: lumpectomy. hysterectomy - Family History Known Family History: Positive: Hypertension, Other - no related rib - Social History Alcohol Use: Occasionally Substance Use Type: None Smoking Status (MU): Never Smoked Tobacco Review of Systems All Other Systems Reviewed And Are Negative: Yes Constitutional: Positive: Negative Eyes: Positive: Negative ENT: Positive: Negative Respiratory: Positive: Negative Is Patient Immunocompromised?: No Physical Exam Triage Information Reviewed: Yes Appearance: Well-Appearing, Obese Vital Signs: Initial Vital Signs Temp 97 F 06/24/18 07:35 Pulse 83 06/24/18 07:35 Resp 20 06/24/18 07:35 BP 127/78 06/24/18 07:35 Pulse Ox 98 06/24/18 07:35 Vital Signs Reviewed: Yes Eye Exam: Normal Eyes: Positive: Conjunctiva Clear ENT: Positive: Normal ENT inspection, Hearing grossly normal, Pharynx normal Neck: Positive: Supple, Nontender, No Lymphadenopathy Respiratory: Positive: Chest non-tender, Lungs clear, Normal breath sounds Cardiovascular: Positive: RRR, No Murmur, Pulses Normal Skin: Positive: Other - cystic lesion just above the anus , + swelling, tender to touch, + bloody drainage Course/Dx - Diagnoses Provider Diagnosis: Pilonidal cyst Discharge - Sign-Out/Discharge Documenting (check all that apply): Patient Departure All imaging exams completed and their final reports reviewed: No Studies - Discharge Plan Condition: Stable Disposition: HOME Prescriptions: Cephalexin CAP* [Keflex CAP*] 500 mg PO TID #30 cap Patient Education Materials: Pilonidal Cyst (ED) Referrals: Tamara Abel MD [Primary Care Provider] - 7 Days Additional Instructions: keep the area clean , change dressing daily moist worm compresses, Keflex for 10 days follow up with your pcp in 7 to 10 days - Billing Disposition and Condition Condition: STABLE Disposition: Home
== END 2018-06-24 08:10 | disposition home or self-care (01) ==
LOC: UCCORT 07:21
DX: L05.91 Pilonidal cyst without abscess (principal); Z85.3 Personal history of malignant neoplasm of breast
CPT/HCPCS: 99212; G0463

== ENCOUNTER 2019-07-05 13:38 | Emergency (ER) | payer BC ==
[2019-07-05 14:29] VITALS: BP 116/73
--- NOTE | 2019-07-05 14:59 | UC ---
Lower Extremity/Ankle HPI - HPI Summary HPI Summary: 63 yo female 4 days s/p right foot injury has neuropathy pain/swelling and bruising of foot able to bear wt with limp - History of Current Complaint Chief Complaint: UCLowerExtremity Stated Complaint: R FOOT INJ Time Seen by Provider: 07/05/19 14:46 Hx Obtained From: Patient Onset/Duration: Sudden Onset, Gradual Onset Severity Initially: Moderate Severity Currently: Moderate Pain Intensity: 5 Pain Scale Used: 0-10 Numeric Aggravating Factor(s): Standing, Ambulation Alleviating Factor(s): Rest, Elevation Able to Bear Weight: Yes Feet (Multiple View): 1 - tender 2 - swollen/ecchymotic - Allergies/Home Medications Allergies/Adverse Reactions: Allergies Allergy/AdvReac Type Severity Reaction Status Date / Time latex Allergy Swelling Verified 07/05/19 14:23 Of Face,Lips,& Throat Home Medications: Home Medications Pantoprazole TAB * [Protonix TAB*] 1 tab DAILY 07/05/19 [History Confirmed 07/05] PMH/Surg Hx/FS Hx/Imm Hx Previously Healthy: Yes Endocrine History: Thyroid Disease Cancer History: Breast Cancer - Surgical History Surgical History: Yes Surgery Procedure, Year, and Place: lumpectomy. hysterectomy. anal fistula - Family History Known Family History: Positive: Hypertension, Other - no related rib - Social History Alcohol Use: None Substance Use Type: None Smoking Status (MU): Never Smoked Tobacco Review of Systems All Other Systems Reviewed And Are Negative: Yes Constitutional: Positive: Negative Skin: Positive: Negative Eyes: Positive: Negative ENT: Positive: Negative Respiratory: Positive: Negative Cardiovascular: Positive: Negative Gastrointestinal: Positive: Negative Genitourinary: Positive: Negative Motor: Positive: Negative Neurovascular: Positive: Negative Musculoskeletal: Positive: Edema Neurological: Positive: Negative Psychological: Positive: Negative Physical Exam Triage Information Reviewed: Yes Appearance: Well-Appearing, No Pain Distress, Well-Nourished Vital Signs: Initial Vital Signs Temp 97.8 F 07/05/19 14:24 Pulse 81 07/05/19 14:24 Resp 16 07/05/19 14:24 BP 116/73 07/05/19 14:24 Pulse Ox 100 07/05/19 14:24 Vital Signs Reviewed: Yes Eyes: Positive: Conjunctiva Clear ENT: Positive: Hearing grossly normal. Negative: Nasal congestion, Nasal drainage, Trismus, Hoarse voice Dental: Negative: Abscess @ Neck: Positive: Supple Respiratory: Positive: Lungs clear, Normal breath sounds, No respiratory distress, No accessory muscle use Cardiovascular: Positive: RRR, No Murmur Musculoskeletal: Positive: Other: - see image Psychological Exam: Normal Skin Exam: Normal Diagnostics - Radiology No standard instances Radiology Interpretation Completed By: Radiologist Summary of Radiographic Findings: comminuted fx diatal 5th MT Lower Extremity Course/Dx - Course Course Of Treatment: Pt refused to use crutches with non wt bearing Pt refused to use a walker - Differential Dx/Diagnosis Provider Diagnosis: Fracture of metatarsal of right foot, closed Discharge ED - Sign-Out/Discharge Documenting (check all that apply): Patient Departure All imaging exams completed and their final reports reviewed: Yes - Discharge Plan Condition: Stable Disposition: HOME Patient Education Materials: Foot Fracture in Adults (ED), Walking Boot (ED) Referrals: Hakeem Rivera MD [Medical Doctor] - As Soon As Possible Additional Instructions: FRACTURE OF THE HEAD OF THE FIFTH METATARSAL - Billing Disposition and Condition Condition: STABLE Disposition: Home
== END 2019-07-05 15:33 | disposition home or self-care (01) ==
LOC: UCCORT 13:38
DX: S92.351A Displaced fracture of fifth metatarsal bone, right foot, initial encounter for closed fracture (principal); Z85.3 Personal history of malignant neoplasm of breast; Z91.040 Latex allergy status; X58.XXXA Exposure to other specified factors, initial encounter; Y92.9 Unspecified place or not applicable
CPT/HCPCS: 99211; G0463